=== PATIENT | female | born 1925 | race Caucasian/White ===

== ENCOUNTER 2016-07-30 20:53 | Inpatient (IN) | payer MEDICARE ==
[2016-07-30] MEDS ORDERED: MORPHINE SULFATE 4 MG/ML SYRINGE IVP STA ×2 (21:10→23:27)
[2016-07-30 21:21] LABS: CH 30.5; CHCM 33.1; HCT 37.3 % (34.0-46.0); HDW 2.66; HGB 12.4 gm/dL (11.4-16.0); MCH 30.8 pg (25.0-35.0); MCHC 33.3 g/dL (31.0-37.0); MCV 92.6 fL (80.0-100.0); Mean Platelet Volume 7.7; RBC 4.03 m/uL (3.80-5.40); RDW 12.7 % (11.5-15.5); WBC 19.2 k/uL (3.8-10.6)
[2016-07-30 21:37] LABS: Add Differential Manual Differential
[2016-07-30 21:38] LABS: Magnesium 1.7 mg/dL (1.6-2.3); Potassium 4.2 mmol/L (3.5-5.1); Total Bilirubin 0.6 mg/dL (0.2-1.3); Total Protein 6.6 g/dL (6.3-8.2)
[2016-07-30 21:39] LABS: Nucleated Red Blood Cells 0 /100 WBC (0-0); Polychromasia Present; Total Cells Counted 100
--- NOTE | 2016-07-30 21:44 | XR ---
EXAMINATION TYPE: XR Hip RT and AP Pelvis DATE OF EXAM: 07/30/2016 9:26 PM COMPARISON: NONE HISTORY: Trauma and pain TECHNIQUE: A single AP view of the pelvis is obtained. Two views of the right hip are obtained. FINDINGS: There is intertrochanteric minimally displaced fracture of the proximal right femur. Bone mineralization is reduced. No dislocation. Vascular calcifications within the pelvis. No significant angulation. IMPRESSION: Minimally displaced intertrochanteric right femoral fracture
--- NOTE | 2016-07-30 21:46 | ED ---
Fall HPI - General Chief Complaint: Fall Stated Complaint: Fall/Hip Pain Time Seen by Provider: 07/30/16 21:06 Source: patient, family, EMS, RN notes reviewed Mode of arrival: EMS - History of Present Illness Initial Comments: This is an 89-year-old female who went to sit on a stool in the stool movement she landed on her right hip. She comes in complaining of right hip pain he was brought in by EMS there was apparent and lateral rotation with pain over the proximal femur. No other injuries reported no head neck or back pain no loss of consciousness no blurry vision no nausea no vomiting. MD Complaint: fall - Related Data Home Medications Medication Instructions Recorded Confirmed ALPRAZolam 0.5 mg PO HS PRN 11/10/14 07/30/16 Simvastatin [Zocor] 20 mg PO WEFR 11/10/14 07/30/16 glipiZIDE [Glucotrol] 5 mg PO BID 11/10/14 07/30/16 metFORMIN HCL [Metformin HCl] 850 mg PO BID 11/10/14 07/30/16 Irbesartan [Avapro] 150 mg PO DAILY 12/27/15 07/30/16 Levothyroxine Sodium [Synthroid] 75 mcg PO DAILY 12/27/15 07/30/16 Indapamide [Lozol] 2.5 mg PO DAILY 07/30/16 07/30/16 Allergies Allergy/AdvReac Type Severity Reaction Status Date / Time No Known Allergies Allergy Verified 07/30/16 21:14 Review of Systems ROS Statement: Those systems with pertinent positive or pertinent negative responses have been documented in the HPI. ROS Other: All systems not noted in ROS Statement are negative. Past Medical History Past Medical History: Diabetes Mellitus, Hyperlipidemia, Hypertension, Thyroid Disorder Additional Past Medical History / Comment(s): LACTOSE INTOLERANT. HAD PNE VACCINE NOT SURE HOW MANY YEARS AGO History of Any Multi-Drug Resistant Organisms: None Reported Past Surgical History: Hysterectomy Additional Past Surgical History / Comment(s): cataracts, Past Anesthesia/Blood Transfusion Reactions: Motion Sickness Past Psychological History: Anxiety Additional Psychological History / Comment(s): PT LIVES IN HOME BY HERSELF, HAS WALKER BUT ONLY USES NEEDED.DENIES ANY FALLS. ONLY OUTSIDE SERVICE IS A [employer] 2X A MONTH. for 25 years. 3 adult children. Remote history of tobacco use. No travel history. No work outside of the home. No animal exposures Smoking Status: Former smoker Past Alcohol Use History: None Reported Additional Past Alcohol Use History / Comment(s): STARTED SMOKING IN HER 20'S, 1 PPD, QUIT 30 YEARS AGO Past Drug Use History: None Reported - Past Family History Father History Unknown: Yes Mother History Unknown: Yes General Exam - General Exam Comments Initial Comments: This is a well-developed well-nourished awake alert oriented 3 female Limitations: physical limitation General appearance: alert, anxious, in distress Head exam: Present: atraumatic, normocephalic, normal inspection Eye exam: Present: normal appearance, PERRL, EOMI. Absent: scleral icterus, conjunctival injection, periorbital swelling ENT exam: Present: normal exam, mucous membranes moist Neck exam: Present: normal inspection. Absent: tenderness, meningismus, lymphadenopathy Respiratory exam: Present: normal lung sounds bilaterally. Absent: respiratory distress, wheezes, rales, rhonchi, stridor Cardiovascular Exam: Present: regular rate, normal rhythm, normal heart sounds. Absent: systolic murmur, diastolic murmur, rubs, gallop, clicks GI/Abdominal exam: Present: soft, normal bowel sounds. Absent: distended, tenderness, guarding, rebound, rigid Extremities exam: Present: tenderness, normal capillary refill, other ( Tenderness over the right lateral inferior hip. Shortening and lateral rotation of the right lower extremity consistent with fracture.). Absent: normal inspection, full ROM, pedal edema, joint swelling, calf tenderness Back exam: Present: normal inspection. Absent: tenderness, CVA tenderness (R), CVA tenderness (L), muscle spasm, paraspinal tenderness, vertebral tenderness Neurological exam: Present: alert, oriented X3, CN II-XII intact Psychiatric exam: Present: normal affect, normal mood Skin exam: Present: warm, dry, intact, normal color. Absent: rash Course Vital Signs 07/30/16 07/30/16 20:55 23:24 Temperature 97.8 F Pulse Rate 99 90 Respiratory 20 18 Rate Blood Pressure 155/78 141/63 O2 Sat by Pulse 94 L 97 Oximetry - Reevaluation(s) Reevaluation #1: 07/30/16 21:45 The patient initially was offered pain medication but did refuse. Reevaluation #2: 07/30/16 22:25 I did discuss findings with the patient and family patient has [facility], Dr. Ann. Medical Decision Making - Medical Decision Making Did discuss findings with patient family as well as with the callDr. Damonshakira. The patient will be admitted in medical clearance performed with ultimate surgery of the right hip. - Lab Data Result diagrams: 07/30/16 21:03 07/30/16 21:03 Lab Results 07/30/16 07/30/16 07/30/16 Range/Units 21:03 21:03 21:43 WBC 19.2 H (3.8-10.6) k/uL RBC 4.03 (3.80-5.40) m/uL Hgb 12.4 (11.4-16.0) gm/dL Hct 37.3 (34.0-46.0) % MCV 92.6 (80.0-100.0) fL MCH 30.8 (25.0-35.0) pg MCHC 33.3 (31.0-37.0) g/dL RDW 12.7 (11.5-15.5) % Plt Count 231 (150-450) k/uL Neutrophils % (Manual) 31.0 % Lymphocytes % (Manual) 63.0 % Monocytes % (Manual) 3.0 % Eosinophils % (Manual) 3.0 % Neutrophils # (Manual) 6.0 (1.3-7.7) k/uL Lymphocytes # (Manual) 12.1 H (1.0-4.8) k/uL Monocytes # (Manual) 0.6 (0-1.0) k/uL Eosinophils # (Manual) 0.6 (0-0.7) k/uL Nucleated RBCs 0 (0-0) /100 WBC Polychromasia Present Sodium 135 L (137-145) mmol/L Potassium 4.2 (3.5-5.1) mmol/L Chloride 94 L (98-107) mmol/L Carbon Dioxide 27 (22-30) mmol/L Anion Gap 14 mmol/L BUN 18 H (7-17) mg/dL Creatinine 1.15 H (0.52-1.04) mg/dL Est GFR (MDRD) Af Amer 54 (>60 ml/min/1.73 sqM) Est GFR (MDRD) Non-Af 44 (>60 ml/min/1.73 sqM) Glucose 391 H (74-99) mg/dL Calcium 9.0 (8.4-10.2) mg/dL Magnesium 1.7 (1.6-2.3) mg/dL Total Bilirubin 0.6 (0.2-1.3) mg/dL AST 14 (14-36) U/L ALT 27 (9-52) U/L Alkaline Phosphatase 97 (38-126) U/L Total Protein 6.6 (6.3-8.2) g/dL Albumin 3.8 (3.5-5.0) g/dL Urine Color Yellow Urine Appearance Cloudy H (Clear) Urine pH 6.0 (5.0-8.0) Ur Specific [place] 1.013 (1.001-1.035) Urine Protein Trace H (Negative) Urine Glucose (UA) 4+ H (Negative) Urine Ketones Negative (Negative) Urine Blood Negative (Negative) Urine Nitrate Negative (Negative) Urine Bilirubin Negative (Negative) Urine Urobilinogen <2.0 (<2.0) mg/dL Ur Leukocyte Esterase Large H (Negative) Urine RBC 1 (0-5) /hpf Urine WBC 92 H (0-5) /hpf Urine WBC Clumps Moderate H (None) /hpf Ur Squamous Epith Cells <1 (0-4) /hpf Urine Bacteria Rare H (None) /hpf Urine Mucus Rare H (None) /hpf - EKG Data -: EKG Interpreted by [facility] EKG shows normal: sinus rhythm (Sinus rhythm a rate of 89. Interval 200 QRS duration 72 QT/QTC of 366/445 left exodeviation old inferior and anterior changes no acute elevations or depressions the ST segments.) - Radiology Data Radiology results: report reviewed (X-rays were reviewed there is an intertrochanteric fracture of the right hip), image reviewed Disposition Clinical Impression: Intertrochanteric fracture of right hip, Fall Disposition: ADMITTED IP TO THIS [facility] Condition: Stable
[2016-07-30 21:57] LABS: Appearance,Urine Cloudy (Clear); Bacteria,Urine Rare /hpf; Bilirubin,Urine Negative (Negative); Glucose,Urine (UA) 4+ (Negative); Ketones,Urine Negative (Negative); Leukocyte Esterase,Urine Large (Negative); Mucus,Urine Rare /hpf; Nitrite,Urine Negative (Negative); Particle Count 1348; Protein,Urine Trace (Negative); RBC,Urine 1 /hpf (0-5); Specific Gravity,Urine 1.013 (1.001-1.035); Squamous Epithelial Cell,Urine <1 /hpf (0-4); UA Billing (MACRO vs. MICRO) MICRO; Urobilinogen,Urine <2.0 mg/dL (<2.0); WBC,Urine 92 /hpf (0-5)
--- NOTE | 2016-07-30 22:05 | XR ---
EXAMINATION TYPE: XR chest 1V DATE OF EXAM: 07/30/2016 9:26 PM COMPARISON: Prior chest x-ray December 2015 HISTORY: Trauma and pain TECHNIQUE: Single frontal view of the chest is obtained. FINDINGS: There is no focal air space opacity, pleural effusion, or pneumothorax seen. The cardiac silhouette size is within normal limits. There is eventration of the right hemidiaphragm. There is a spinal curvature. Rotation may cause accentuation in the appearance of the heart. The osseous struc tures are intact. IMPRESSION: Stable exam, no acute abnormalities evident.
[2016-07-30] MEDS ORDERED: NALOXONE 0.4 MG/ML 1 ML VIAL IV PRN (23:30)
[2016-07-30] MEDS ORDERED: ALPRAZolam 0.5 MG TAB PO PRN (23:32)
[2016-07-31 00:22] LABS: Glucose,Whole Blood 300 mg/dL (75-99)
[2016-07-31 01:57] VITALS: BMI 21.2
[2016-07-31] MEDS: SODIUM CHLORIDE 0.9% 1,000 ML IV SCH (05:47)
[2016-07-31] MEDS: MORPHINE SULFATE 4 MG/ML SYRINGE IV PRN ×2 (05:48→14:57)
[2016-07-31] MEDS: LEVOTHYROXINE 75 MCG TAB PO SCH (05:57)
[2016-07-31 07:16] LABS: Glucose,Whole Blood 301 mg/dL (75-99)
[2016-07-31] MEDS: glipiZIDE 5 MG TAB PO SCH ×2 (07:23→17:57)
[2016-07-31] MEDS ORDERED: metFORMIN 850 MG TAB PO SCH (07:30)
[2016-07-31] MEDS: LOSARTAN 50 MG TAB PO SCH (07:56)
[2016-07-31] MEDS: HEPARIN SODIUM,PORCINE 5,000 UNIT/ML 1 ML VIAL SQ SCH ×2 (07:56→20:52)
[2016-07-31] MEDS: INSULIN LISPRO (humaLOG) 300 UNIT/3 ML VIAL SQ SCH ×4 (07:57→20:52)
--- NOTE | 2016-07-31 08:48 | P.HPOR ---
History of Present Illness H&P Date: 07/31/16 Chief Complaint: Right hip fracture This is an 89-year-old female who presented to the emergency department yesterday after falling in her home and sustaining injury to her right hip. She states that she missed her stool and fell to the ground landing on her right hip. She denies injury to her head or neck. She denies any pain to her upper extremities. She denies loss of consciousness. She is admitted to our service for surgical intervention and care of her right hip fracture. Past Medical History Past Medical History: Diabetes Mellitus, Hyperlipidemia, Hypertension, Thyroid Disorder Additional Past Medical History / Comment(s): LACTOSE INTOLERANT. HAD PNE VACCINE NOT SURE HOW MANY YEARS AGO and flu shot this year History of Any Multi-Drug Resistant Organisms: None Reported Past Surgical History: Hysterectomy Additional Past Surgical History / Comment(s): cataracts, Past Anesthesia/Blood Transfusion Reactions: Motion Sickness Past Psychological History: Anxiety Additional Psychological History / Comment(s): PT LIVES IN HOME BY HERSELF, HAS WALKER BUT ONLY USES NEEDED.DENIES ANY FALLS. ONLY OUTSIDE SERVICE IS A [employer] 2X A MONTH. for 25 years. 3 adult children. Remote history of tobacco use. No travel history. No work outside of the home. No animal exposures Smoking Status: Former smoker Past Alcohol Use History: None Reported Additional Past Alcohol Use History / Comment(s): STARTED SMOKING IN HER 20'S, 1 PPD, QUIT 40 YEARS AGO Past Drug Use History: None Reported - Past Family History Father History Unknown: Yes Mother History Unknown: Yes Medications and Allergies Home Medications Medication Instructions Recorded Confirmed Type ALPRAZolam 0.5 mg PO HS PRN 11/10/14 07/30/16 History Simvastatin [Zocor] 20 mg PO WEFR 11/10/14 07/30/16 History glipiZIDE [Glucotrol] 5 mg PO BID 11/10/14 07/30/16 History metFORMIN HCL [Metformin HCl] 850 mg PO BID 11/10/14 07/30/16 History Irbesartan [Avapro] 150 mg PO DAILY 12/27/15 07/30/16 History Levothyroxine Sodium [Synthroid] 75 mcg PO DAILY 12/27/15 07/30/16 History Indapamide [Lozol] 2.5 mg PO DAILY 07/30/16 07/30/16 History Allergies Allergy/AdvReac Type Severity Reaction Status Date / Time No Known Allergies Allergy Verified 07/30/16 21:14 Physical Examination This is a pleasant 89-year-old female in no acute distress. She is alert and oriented 3. Exam of the head neck reveal no obvious deformity. She has fairly good cervical spine motion without difficulty or pain. There is no pain on palpation about cervical spine or paraspinal musculature. Exam the upper extremities unremarkable. She has fairly good shoulder, elbow, wrist and finger motion without difficulty or pain. Neurovascular status the upper extremities intact. Exam of the lower extremities reveals shortening and external rotation to the right leg. There is pain with any motion of the right hip. She has full foot and ankle motion without difficulty or pain. Neurovascular status to the lower extremities is intact. Results X-rays of the pelvis and right hip reveal a displaced intertrochanteric fracture. - Labs Labs: Abnormal Lab Results - Last 24 Hours (Table) 07/31/16 07/31/16 Range/Units 00:21 06:50 POC Glucose (mg/dL) 300 H 301 H (75-99) mg/dL Result Diagrams: 07/30/16 21:03 07/30/16 21:03 Assessment and Plan (1) Intertrochanteric fracture of right hip Status: Acute Plan: The clinical and x-ray findings are discussed with the patient. It is recommended that she undergo closed reduction with insertion of intertrochanteric nail of the right hip. The procedures been discussed in detail including the possible risks and outcomes of the procedure. I have attempted to contact the patient's daughter bilaterally was unable to retrieve by phone. I did leave a message. The patient is requesting Dr. Ann who is out of town at this time. The patient would like me to discuss other options with the daughter. I have her tentatively scheduled with Dr. Conroy for surgery tomorrow. Patient does have an elevated white count and a urinary tract infection. I've ordered antibiotics. We are awaiting evaluation with internal medicine. I anticipate the need for inpatient rehab postoperatively.
[2016-07-31] MEDS ORDERED: INDAPAMIDE 2.5 MG TAB PO SCH (09:00)
[2016-07-31] MEDS ORDERED: LEVOFLOXACIN 500MG-D5W PMX 500 MG in DEXTROSE/WATER 1 100ML.BAG IVPB SCH (09:00)
--- NOTE | 2016-07-31 09:45 | P.CONS ---
History of Present Illness - Reason for Consult Consult date: 07/31/16 Medical management Requesting physician: Erlin Conroy - Chief Complaint Fall with right hip fracture - History of Present Illness This is a 89-year-old female, patient of Dr. Gonzalez. She has a known past medical history of diabetes mellitus type 2, hyperlipidemia, hypertension, hypothyroidism and a former smoker. Patient went to sit on her computer stool. She missed sitting on the stool and landed on the floor on her right hip. The thompson was carpeted. She denies any loss of consciousness or hitting her head. Denies any chest pain or shortness of breath. Denies any nausea or vomiting. She had been having regular bowel movements. Denies any difficulty urinating or burning with urination. She denies any fevers chills or sweats. Patient does little at home alone. She was having significant pain in the right hip area and was brought into the emergency room for further evaluation and treatment. X-ray of the right hip and pelvis shows minimally displaced intertrochanteric right femoral fracture. She was admitted to orthopedic service. We have been consulted for medical management. She is scheduled first orthopedic surgery tomorrow. Review of Systems Please refer to HPI otherwise unremarkable Past Medical History Past Medical History: Diabetes Mellitus, Hyperlipidemia, Hypertension, Thyroid Disorder Additional Past Medical History / Comment(s): LACTOSE INTOLERANT. HAD PNE VACCINE NOT SURE HOW MANY YEARS AGO and flu shot this year History of Any Multi-Drug Resistant Organisms: None Reported Past Surgical History: Hysterectomy Additional Past Surgical History / Comment(s): cataracts, Past Anesthesia/Blood Transfusion Reactions: Motion Sickness Past Psychological History: Anxiety Additional Psychological History / Comment(s): PT LIVES IN HOME BY HERSELF, HAS WALKER BUT ONLY USES NEEDED.DENIES ANY FALLS. ONLY OUTSIDE SERVICE IS A [employer] 2X A MONTH. for 25 years. 3 adult children. Remote history of tobacco use. No travel history. No work outside of the home. No animal exposures Smoking Status: Former smoker Past Alcohol Use History: None Reported Additional Past Alcohol Use History / Comment(s): STARTED SMOKING IN HER 20'S, 1 PPD, QUIT 40 YEARS AGO Past Drug Use History: None Reported - Past Family History Father History Unknown: Yes Mother History Unknown: Yes Medications and Allergies Home Medications Medication Instructions Recorded Confirmed Type ALPRAZolam 0.5 mg PO HS PRN 11/10/14 07/30/16 History Simvastatin [Zocor] 20 mg PO WEFR 11/10/14 07/30/16 History glipiZIDE [Glucotrol] 5 mg PO BID 11/10/14 07/30/16 History metFORMIN HCL [Metformin HCl] 850 mg PO BID 11/10/14 07/30/16 History Irbesartan [Avapro] 150 mg PO DAILY 12/27/15 07/30/16 History Levothyroxine Sodium [Synthroid] 75 mcg PO DAILY 12/27/15 07/30/16 History Indapamide [Lozol] 2.5 mg PO DAILY 07/30/16 07/30/16 History Allergies Allergy/AdvReac Type Severity Reaction Status Date / Time No Known Allergies Allergy Verified 07/30/16 21:14 Physical Exam Vitals: Vital Signs Temp Pulse Pulse Resp BP BP BP 07/31/16 08:00 95 16 07/31/16 07:00 99.4 F 95 16 147/65 07/31/16 03:16 98.3 F 07/31/16 02:00 78 16 07/31/16 01:29 92 16 167/68 07/31/16 00:49 98.3 F 78 18 160/58 07/30/16 23:49 92 18 167/64 Pulse Ox 07/31/16 08:00 07/31/16 07:00 95 07/31/16 03:16 07/31/16 02:00 07/31/16 01:29 97 07/31/16 00:49 95 07/30/16 23:49 97 Intake and Output 07/30/16 07/31/16 07/31/16 22:59 06:59 14:59 Output Total 200 Balance -200 Output: Urine 200 Other: Voiding Method Indwelling Catheter Indwelling Catheter Weight 54.431 kg Head normocephalic Neck supple Lungs diminished at bases bilaterally Heart regular rate and rhythm S1-S2, no rub or gallop Abdomen is soft nontender nondistended positive bowel sounds no hepatosplenomegaly Extremities no edema. +2 dorsalis pedis pulses Neuro alert and orientated to 3 Results CBC & Chem 7: 07/30/16 21:03 07/30/16 21:03 Labs: Abnormal Lab Results - Last 24 Hours (Table) 07/31/16 07/31/16 Range/Units 00:21 06:50 POC Glucose (mg/dL) 300 H 301 H (75-99) mg/dL Assessment and Plan Plan: 1. Acute intertrochanteric right femoral fracture: Admitted to orthopedic service. Patient is scheduled for closed reduction with insertion of intratrochanteric nail of right hip tomorrow. Patient is intermediate risk for surgery using the RCRI . She does have a known known history of diabetes. Denies any history of coronary artery disease, congestive heart failure, CVA or renal failure. She usually is able to walk a flight of stairs without shortness of breath and chest pain. Chest x-ray is negative. EKG had shown a normal sinus rhythm with ST and T-wave abnormality. 2. UTI present on admission: Patient started on Levaquin per orthopedics. Check urine culture. 3. Acute kidney injury creatinine 1.15 on admission. Repeat labs. Start normal saline at 50 mL an hour and monitor. 4. Diabetes mellitus type 2: Hold metformin. Continue glipizide and sliding scale coverage 5. Hypertension: Blood pressures are stable continue with her home blood pressure medications. Which includes the Avapro and Lozol 6. Hypothyroidism continue Synthroid 7. Hyperlipidemia continue Zocor 8. Generalized anxiety disorder continue Xanax as needed GI prophylaxis Pepcid and DVT prophylaxis subcu heparin Thank you for this consultation. We will continue to follow along with you. Time with Patient: Greater than 30 (Greater than 50% of the total time spent in counseling and coordination of care.I performed an examination of the patient and discussed their management with the physician Online Banking Specialist. I have reviewed the Physician Online Banking Specialist's notes and agree with the documented findings and plan of care)
[2016-07-31 09:50] LABS: CH 30.7; CHCM 33.1; HCT 34.4 % (34.0-46.0); HDW 2.61; HGB 11.3 gm/dL (11.4-16.0); MCH 30.8 pg (25.0-35.0); MCV 93.3 fL (80.0-100.0); Mean Platelet Volume 7.6; RBC 3.68 m/uL (3.80-5.40); RDW 12.9 % (11.5-15.5); WBC 23.1 k/uL (3.8-10.6); WBC (Perox) 23.88
[2016-07-31 09:57] LABS: Potassium 4.2 mmol/L (3.5-5.1); Total Bilirubin 0.7 mg/dL (0.2-1.3); Total Protein 6.5 g/dL (6.3-8.2)
[2016-07-31 10:20] LABS: Add Differential Manual Differential
[2016-07-31 10:22] LABS: Manual Review Performed; Nucleated Red Blood Cells 0 /100 WBC (0-0); Total Cells Counted 100
[2016-07-31] MEDS: ONDANSETRON 4 MG/2 ML VIAL IVP PRN ×2 (10:55→17:56)
[2016-07-31 12:12] LABS: Hemoglobin A1C 8.4 % (4.2-6.1)
[2016-07-31 12:42] LABS: Glucose,Whole Blood 257 mg/dL (75-99)
[2016-07-31 17:02] LABS: Glucose,Whole Blood 224 mg/dL (75-99)
[2016-07-31] MEDS: FAMOTIDINE 20 MG TAB PO SCH (17:54)
[2016-07-31 20:41] LABS: Glucose,Whole Blood 188 mg/dL (75-99)
[2016-08-01] MEDS: SODIUM CHLORIDE 0.9% 1,000 ML IV SCH (00:11)
[2016-08-01 02:18] LABS: Glucose,Whole Blood 113 mg/dL (75-99)
[2016-08-01] MEDS: HYDROmorphone 1 MG/ML 1 ML SYRINGE IVP PRN ×3 (02:23→15:37)
[2016-08-01] MEDS: ONDANSETRON 4 MG/2 ML VIAL IVP PRN (02:29)
[2016-08-01] MEDS ORDERED: MIDAZOLAM 2 MG/2 ML VIAL IV PRN (05:52)
[2016-08-01] MEDS: LEVOTHYROXINE 75 MCG TAB PO SCH (06:21)
[2016-08-01 07:29] LABS: Basophils # (A) 0.2 k/uL (0-0.2); Basophils % (A) 1 %; CH 30.6; CHCM 32.7; Eosinophils % (A) 0 %; HCT 30.4 % (34.0-46.0); HDW 2.65; Luc # (Auto) 0.42; Luc % (Auto) 2; Lymphocytes # (A) 7.3 k/uL (1.0-4.8); Lymphocytes % (A) 42 %; MCH 30.6 pg (25.0-35.0); MCHC 32.4 g/dL (31.0-37.0); MCV 94.4 fL (80.0-100.0); Mean Platelet Volume 8.1; Monocytes # (A) 0.7 k/uL (0-1.0); Monocytes % (A) 4 %; Neutrophils # (A) 8.9 k/uL (1.3-7.7); Neutrophils % (A) 51 %; RBC 3.22 m/uL (3.80-5.40); RDW 13.2 % (11.5-15.5); WBC 17.5 k/uL (3.8-10.6); WBC (Perox) 19.18
[2016-08-01 07:30] LABS: HGB 9.8 gm/dL (11.4-16.0)
[2016-08-01 07:32] LABS: Glucose,Whole Blood 139 mg/dL (75-99)
[2016-08-01 07:49] LABS: Calcium 8.9 mg/dL (8.4-10.2); Potassium 4.1 mmol/L (3.5-5.1); Total Bilirubin 0.6 mg/dL (0.2-1.3)
[2016-08-01] MEDS: LEVOFLOXACIN 250MG-D5W PMX 250 MG in DEXTROSE/WATER 1 50ML.BAG IVPB SCH (08:40)
[2016-08-01] MEDS ORDERED: ATORVASTATIN 10 MG TAB PO SCH (09:00)
[2016-08-01] MEDS: glipiZIDE 5 MG TAB PO SCH ×2 (09:09→16:46)
[2016-08-01] MEDS: INSULIN LISPRO (humaLOG) 300 UNIT/3 ML VIAL SQ SCH ×4 (09:09→22:34)
--- NOTE | 2016-08-01 09:23 | P.CONS ---
History of Present Illness - Reason for Consult Consult date: 08/01/16 - Chief Complaint Fall - History of Present Illness Very pleasant 89-year-old female was at her home. She went to work on the computer as she went to sit in the stool she lost her balance and fell to the floor. She then developed significant pain into her right hip. She Was Brought to the Emergency Center for X-Ray Reveals Evidence of the Right Intertrochanteric Hip Fracture Is Minimally Displaced. She is now planned for the open reduction internal fixation of the fracture today. Patient was noted evidence of a mild leukocytosis as well as abnormal urinalysis. Concerns for urinary tract infection. The patient has urinary incontinence and is unaware of any significant change of her urinary status. She is denying dysuria but is unaware of any change of frequency because she has significant incontinence. Does not believe she was having significant fever , chill or rigor in the home setting before she came in the hospital. Family did see her the day of the injury and did not notice any other acute new changes to the patient's status. At the moment other than some pain to the hip she has no other new acute complaints. She is mildly anxious about surgery. Review of Systems Patient is somewhat of a poor historian HEENT:Denies severe headache or acute visual change. Denies sinus or mouth discomforts. Denies neck stiffness or pain. Denies significant oral cavity pain. Denies difficulty on swallowing. He has right ear pain as noted. Lungs: Denies significant shortness of breath, cough, sputum production, or hemoptysis. Cardiovascular: Denies significant shortness of breath, chest pain, chest wall pain, orthopnea, dyspnea on exertion, syncope Gastrointestinal:Denies nausea, vomiting, diarrhea, constipation, hematemesis, melena, hematochezia. No no significant change of bowel habit noticed. Musculoskeletal: denies significant myalgias Denies new back pain. Does have some pain to the right hip but denies that it is severe. Skin: Denies new rash or lesions. No new ulcers or wounds are related.. Neuro: Denies headache or visual change. Poor hearing right ear Psychiatric: Anxious Endocrine: Worsening fatigue and weight loss Past Medical History Past Medical History: Diabetes Mellitus, Hyperlipidemia, Hypertension, Thyroid Disorder Additional Past Medical History / Comment(s): LACTOSE INTOLERANT. HAD PNE VACCINE NOT SURE HOW MANY YEARS AGO and flu shot this year History of Any Multi-Drug Resistant Organisms: None Reported Past Surgical History: Hysterectomy Additional Past Surgical History / Comment(s): cataracts, Past Anesthesia/Blood Transfusion Reactions: Motion Sickness Past Psychological History: Anxiety Additional Psychological History / Comment(s): PT LIVES IN HOME BY HERSELF, HAS WALKER BUT ONLY USES NEEDED. 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 for 25 years. 3 adult children. However involved and see her on a frequent basis. Remote history of tobacco use. No travel history. No work outside of the home. No animal exposures Smoking Status: Former smoker Past Alcohol Use History: None Reported Additional Past Alcohol Use History / Comment(s): STARTED SMOKING IN HER 20'S, 1 PPD, QUIT 40 YEARS AGO Past Drug Use History: None Reported - Past Family History Father History Unknown: Yes Mother History Unknown: Yes Medications and Allergies Home Medications Medication Instructions Recorded Confirmed Type ALPRAZolam 0.5 mg PO HS PRN 11/10/14 07/30/16 History Simvastatin [Zocor] 20 mg PO WEFR 11/10/14 07/30/16 History glipiZIDE [Glucotrol] 5 mg PO BID 11/10/14 07/30/16 History metFORMIN HCL [Metformin HCl] 850 mg PO BID 11/10/14 07/30/16 History Irbesartan [Avapro] 150 mg PO DAILY 12/27/15 07/30/16 History Levothyroxine Sodium [Synthroid] 75 mcg PO DAILY 12/27/15 07/30/16 History Indapamide [Lozol] 2.5 mg PO DAILY 07/30/16 07/30/16 History Allergies Allergy/AdvReac Type Severity Reaction Status Date / Time morphine AdvReac Nausea & Verified 07/31/16 18:01 Vomiting Physical Exam Vitals: Vital Signs Temp Pulse Pulse Resp BP Pulse Ox 08/01/16 07:00 98.7 F 89 16 128/49 96 08/01/16 04:07 99.1 F 79 18 124/53 98 07/31/16 20:33 97.7 F 88 16 119/47 94 L 07/31/16 16:00 98.4 F 95 96 17 115/52 96 Intake and Output 07/31/16 08/01/16 08/01/16 22:59 06:59 14:59 Intake Total 250 400 Output Total 400 300 Balance -150 100 Intake: IV 150 400 Sodium Chloride 0.9% 1, 150 400 000 ml @ 50 mls/hr IV . Q20H [facility] Rx#:[id number] Oral 100 Output: Urine 400 300 Uretheral (Hollis) 300 Other: Voiding Method Indwelling Catheter 89-year-old woman who seems somewhat uncomfortable. Having pain to her right hip. HEENT: Anicteric conjunctiva are pink and moist nasal mucosa grossly intact without significant lesions, there is no thrush. Oral mucosa is dry poor dentition, plates in place Neck: The neck is supple without significant lymphadenopathy or thyromegaly. There is no cervical lymphadenopathy preauricular or posterior cervical at this time. No other abnormal lymph nodes are noted. Lungs: Good bilateral air entry without significant crackles or wheezing. There is no significant bronchial sounds. There is no egophony or dullness. Heart: Irregular with a positive S4. No murmur click or rub. Abdomen: Positive bowel sounds soft and nontender without palpable masses or organomegaly. There was no guarding or rebound. She complained of mild tenderness upon suprapubic pressure. Extremities: The upper extremity show no lesions. IV site is intact. No splinter hemorrhages or lesions on the hands. Left lower extremity has no abnormalities. Fabio has evidence of some mild tenderness to the lateral aspect of the hip. No erythema is noted no extensive bruising is seen. No erythema to the hip areas noted. Neuro: She is awake and alert, somewhat of a poor historian. She follows simple commands. Results CBC & Chem 7: 08/01/16 06:42 08/01/16 06:42 Labs: Abnormal Lab Results - Last 24 Hours (Table) 07/31/16 07/31/16 07/31/16 Range/Units 09:03 09:03 12:16 WBC 23.1 H (3.8-10.6) k/uL RBC 3.68 L (3.80-5.40) m/uL Hgb 11.3 L (11.4-16.0) gm/dL Hct (34.0-46.0) % Neutrophils # (1.3-7.7) k/uL Neutrophils # (Manual) 11.8 H (1.3-7.7) k/uL Lymphocytes # (1.0-4.8) k/uL Lymphocytes # (Manual) 10.6 H (1.0-4.8) k/uL Chloride 97 L (98-107) mmol/L Carbon Dioxide 32 H (22-30) mmol/L BUN (7-17) mg/dL Creatinine 1.09 H (0.52-1.04) mg/dL Glucose 307 H (74-99) mg/dL POC Glucose (mg/dL) 257 H (75-99) mg/dL AST 13 L (14-36) U/L Total Protein (6.3-8.2) g/dL Albumin (3.5-5.0) g/dL 07/31/16 07/31/16 08/01/16 Range/Units 16:53 20:40 02:06 WBC (3.8-10.6) k/uL RBC (3.80-5.40) m/uL Hgb (11.4-16.0) gm/dL Hct (34.0-46.0) % Neutrophils # (1.3-7.7) k/uL Neutrophils # (Manual) (1.3-7.7) k/uL Lymphocytes # (1.0-4.8) k/uL Lymphocytes # (Manual) (1.0-4.8) k/uL Chloride (98-107) mmol/L Carbon Dioxide (22-30) mmol/L BUN (7-17) mg/dL Creatinine (0.52-1.04) mg/dL Glucose (74-99) mg/dL POC Glucose (mg/dL) 224 H 188 H 113 H (75-99) mg/dL AST (14-36) U/L Total Protein (6.3-8.2) g/dL Albumin (3.5-5.0) g/dL 08/01/16 08/01/16 08/01/16 Range/Units 06:42 06:42 07:28 WBC 17.5 H (3.8-10.6) k/uL RBC 3.22 L (3.80-5.40) m/uL Hgb 9.8 L D (11.4-16.0) gm/dL Hct 30.4 L (34.0-46.0) % Neutrophils # 8.9 H (1.3-7.7) k/uL Neutrophils # (Manual) (1.3-7.7) k/uL Lymphocytes # 7.3 H (1.0-4.8) k/uL Lymphocytes # (Manual) (1.0-4.8) k/uL Chloride (98-107) mmol/L Carbon Dioxide 31 H (22-30) mmol/L BUN 21 H (7-17) mg/dL Creatinine 1.28 H (0.52-1.04) mg/dL Glucose 146 H (74-99) mg/dL POC Glucose (mg/dL) 139 H (75-99) mg/dL AST 10 L (14-36) U/L Total Protein 6.0 L (6.3-8.2) g/dL Albumin 3.2 L (3.5-5.0) g/dL Microbiology - Last 24 Hours (Table) 07/31/16 16:50 Urine Culture - Preliminary Urine,Catheterized Laboratory Results WBC 17.5 k/uL (3.8-10.6) H 08/01/16 06:42 RBC 3.22 m/uL (3.80-5.40) L 08/01/16 06:42 Hgb 9.8 gm/dL (11.4-16.0) L D 08/01/16 06:42 Hct 30.4 % (34.0-46.0) L 08/01/16 06:42 MCV 94.4 fL (80.0-100.0) 08/01/16 06:42 MCH 30.6 pg (25.0-35.0) 08/01/16 06:42 MCHC 32.4 g/dL (31.0-37.0) 08/01/16 06:42 RDW 13.2 % (11.5-15.5) 08/01/16 06:42 Plt Count 198 k/uL (150-450) 08/01/16 06:42 Neutrophils % 51 % 08/01/16 06:42 Neutrophils % (Manual) 51.0 % 07/31/16 09:03 Lymphocytes % 42 % 08/01/16 06:42 Lymphocytes % (Manual) 46.0 % 07/31/16 09:03 Monocytes % 4 % 08/01/16 06:42 Monocytes % (Manual) 3.0 % 07/31/16 09:03 Eosinophils % 0 % 08/01/16 06:42 Eosinophils % (Manual) 3.0 % 07/30/16 21:03 Basophils % 1 % 08/01/16 06:42 Neutrophils # 8.9 k/uL (1.3-7.7) H 08/01/16 06:42 Neutrophils # (Manual) 11.8 k/uL (1.3-7.7) H 07/31/16 09:03 Lymphocytes # 7.3 k/uL (1.0-4.8) H 08/01/16 06:42 Lymphocytes # (Manual) 10.6 k/uL (1.0-4.8) H 07/31/16 09:03 Monocytes # 0.7 k/uL (0-1.0) 08/01/16 06:42 Monocytes # (Manual) 0.7 k/uL (0-1.0) 07/31/16 09:03 Eosinophils # 0.0 k/uL (0-0.7) 08/01/16 06:42 Eosinophils # (Manual) 0.6 k/uL (0-0.7) 07/30/16 21:03 Basophils # 0.2 k/uL (0-0.2) 08/01/16 06:42 Nucleated RBCs 0 /100 WBC (0-0) 07/31/16 09:03 Manual Slide Review Performed 07/31/16 09:03 Polychromasia Present 07/30/16 21:03 Poikilocytosis (manual Present 07/31/16 09:03 Sodium 141 mmol/L (137-145) 08/01/16 06:42 Potassium 4.1 mmol/L (3.5-5.1) 08/01/16 06:42 Chloride 101 mmol/L (98-107) 08/01/16 06:42 Carbon Dioxide 31 mmol/L (22-30) H 08/01/16 06:42 Anion Gap 9 mmol/L 08/01/16 06:42 BUN 21 mg/dL (7-17) H 08/01/16 06:42 Creatinine 1.28 mg/dL (0.52-1.04) H 08/01/16 06:42 Est GFR (MDRD) Af Amer 48 (>60 ml/min/1.73 sqM) 08/01/16 06:42 Est GFR (MDRD) Non-Af 39 (>60 ml/min/1.73 sqM) 08/01/16 06:42 Glucose 146 mg/dL (74-99) H 08/01/16 06:42 POC Glucose (mg/dL) 139 mg/dL (75-99) H 08/01/16 07:28 POC Glu Sheet Metal Duct Installer Helper ID Marilin Maza 08/01/16 07:[address] Glu mg/dL 194 mg/dL 07/30/16 21:03 Hemoglobin A1c 8.4 % (4.2-6.1) H 07/30/16 21:03 Calcium 8.9 mg/dL (8.4-10.2) 08/01/16 06:42 Magnesium 1.7 mg/dL (1.6-2.3) 07/30/16 21:03 Total Bilirubin 0.6 mg/dL (0.2-1.3) 08/01/16 06:42 AST 10 U/L (14-36) L 08/01/16 06:42 ALT 26 U/L (9-52) 08/01/16 06:42 Alkaline Phosphatase 75 U/L (38-126) 08/01/16 06:42 Total Protein 6.0 g/dL (6.3-8.2) L 08/01/16 06:42 Albumin 3.2 g/dL (3.5-5.0) L 08/01/16 06:42 Urine Color Yellow 07/30/16 21:43 Urine Appearance Cloudy (Clear) H 07/30/16 21:43 Urine pH 6.0 (5.0-8.0) 07/30/16 21:43 Ur Specific [place] 1.013 (1.001-1.035) 07/30/16 21:43 Urine Protein Trace (Negative) H 07/30/16 21:43 Urine Glucose (UA) 4+ (Negative) H 07/30/16 21:43 Urine Ketones Negative (Negative) 07/30/16 21:43 Urine Blood Negative (Negative) 07/30/16 21:43 Urine Nitrate Negative (Negative) 07/30/16 21:43 Urine Bilirubin Negative (Negative) 07/30/16 21:43 Urine Urobilinogen <2.0 mg/dL (<2.0) 07/30/16 21:43 Ur Leukocyte Esterase Large (Negative) H 07/30/16 21:43 Urine RBC 1 /hpf (0-5) 07/30/16 21:43 Urine WBC 92 /hpf (0-5) H 07/30/16 21:43 Urine WBC Clumps Moderate /hpf (None) H 07/30/16 21:43 Ur Squamous Epith Cells <1 /hpf (0-4) 07/30/16 21:43 Urine Bacteria Rare /hpf (None) H 07/30/16 21:43 Urine Mucus Rare /hpf (None) H 07/30/16 21:43 Microbiology 07/31/16 16:50 Urine,Catheterized Urine Culture - Preliminary Assessment and Plan (1) Intertrochanteric fracture of right hip Narrative/Plan: 89-year-old female presents to Hospital from home. She attempted to sit on the stool she uses for her computer and missed the stool. She relates that the stool is normally for her sewing machine and is kind of short and may not been the right position. She fell to the floor causing severe pain to her right hip. Now is evidence of the intratrochanteric fracture of her right hip. Going to the operating room today. The patient does have urinary incontinence and is unaware frequency but does have evidence of some mild suprapubic tenderness on the exam. There is also evidence of a markedly abnormal urinalysis and she does have some leukocytosis. Stenosis is likely multifactorial including the significant fracture as well as what appears to be urinary infection. Antibiotic therapy has been initiated with levofloxacin. This is likely an adequate choice given her lack of significant other primary in about therapy for urinary infections. She does have urine culture in process and this will further help direct antibiotic therapy. She may proceed to open reduction internal fixation for hip fracture today. Consult received at 8:15 AM. Status: Acute (2) Leukocytosis Status: Acute (3) Urinary tract infection Status: Acute
[2016-08-01] MEDS ORDERED: IV FLUID CONTINUATION 1,000 ML IV ONE (09:27)
[2016-08-01] MEDS: FAMOTIDINE 20 MG TAB PO SCH (09:52)
[2016-08-01] MEDS: HEPARIN SODIUM,PORCINE 5,000 UNIT/ML 1 ML VIAL SQ SCH ×2 (09:52→22:33)
[2016-08-01] MEDS: LOSARTAN 50 MG TAB PO SCH (09:52)
[2016-08-01] MEDS: LACTATED RINGERS 1,000 ML IV SCH ×2 (10:35→13:53)
[2016-08-01] MEDS ORDERED: KETAMINE 10 MG/ML 20 ML VIAL ONE (10:40)
[2016-08-01] MEDS ORDERED: fentaNYL (PF) 50 MCG/ML 2 ML AMP ONE (10:40)
[2016-08-01] MEDS ORDERED: diphenhydrAMINE 50 MG/ML 1 ML VIAL ONE (10:40)
[2016-08-01] MEDS ORDERED: PROPOFOL 10 MG/ML 20 ML VIAL IV ONE (10:40)
[2016-08-01] MEDS ORDERED: MIDAZOLAM 2 MG/2 ML VIAL ONE (10:40)
[2016-08-01] MEDS ORDERED: ceFAZolin 1,000 MG in SODIUM CHLORIDE 0.9% 1,000 ML IRRIGATION ONE (10:44)
--- NOTE | 2016-08-01 10:52 | P.PN ---
Subjective Is a 89-year-old female who presented to the hospital after fracturing her right hip. She had gone to sit on her stool and missed the stool. Also was found have evidence of a UTI. Seen by Dr. Sarmiento and he has cleared her for surgery. Patient lying in bed comfortably. Pain controlled. Denies any chest pain or shortness of breath. Denies any nausea or vomiting. Denies any bowel movement changes. Denies any burning with urination. Patient was seen evaluated prior to surgery Objective - Vital Signs Vital signs: Vital Signs Temp 97.9 F 08/01/16 09:29 Pulse 83 08/01/16 09:29 Resp 18 08/01/16 09:29 BP 130/71 08/01/16 09:29 Pulse Ox 91 L 08/01/16 09:29 Intake & Output 07/31/16 08/01/16 08/01/16 18:59 06:59 18:59 Intake Total 268 913 9081 Output Total 400 300 Balance 241 289 6923 Intake: IV 186 463 0779 Sodium Chloride 0.9% 1, 500 550 000 ml @ 50 mls/hr IV . Q20H [facility] Rx#:[id number] Intake, IV Titration 150 Amount Levofloxacin 250Mg-D5w 50 Pmx 250 mg In Dextrose/ Water 1 50ml.bag @ 50 mls /hr IVPB Q24H [facility] Rx#: [id number] Levofloxacin 500Mg-D5w 100 Pmx 500 mg In Dextrose/ Water 1 100ml.bag @ 100 mls/hr IVPB Q24H [facility] Rx#: [id number] Oral 100 Output: Urine 400 300 Uretheral (Hollis) 300 Other: Voiding Method Indwelling Catheter Indwelling Catheter Indwelling Catheter - Exam Head normocephalic Neck supple Lungs clear to auscultation bilaterally no wheezing or crackles Heart regular rate and rhythm S1-S2, no rub or gallop Abdomen is soft nontender nondistended positive bowel sounds no hepatosplenomegaly Extremities no edema Neuro alert and orientated to 3 - Labs CBC & Chem 7: 08/01/16 06:42 08/01/16 06:42 Labs: Abnormal Lab Results - Last 24 Hours (Table) 07/31/16 07/31/16 07/31/16 Range/Units 12:16 16:53 20:40 WBC (3.8-10.6) k/uL RBC (3.80-5.40) m/uL Hgb (11.4-16.0) gm/dL Hct (34.0-46.0) % Neutrophils # (1.3-7.7) k/uL Lymphocytes # (1.0-4.8) k/uL Carbon Dioxide (22-30) mmol/L BUN (7-17) mg/dL Creatinine (0.52-1.04) mg/dL Glucose (74-99) mg/dL POC Glucose (mg/dL) 257 H 224 H 188 H (75-99) mg/dL AST (14-36) U/L Total Protein (6.3-8.2) g/dL Albumin (3.5-5.0) g/dL 08/01/16 08/01/16 08/01/16 Range/Units 02:06 06:42 06:42 WBC 17.5 H (3.8-10.6) k/uL RBC 3.22 L (3.80-5.40) m/uL Hgb 9.8 L D (11.4-16.0) gm/dL Hct 30.4 L (34.0-46.0) % Neutrophils # 8.9 H (1.3-7.7) k/uL Lymphocytes # 7.3 H (1.0-4.8) k/uL Carbon Dioxide 31 H (22-30) mmol/L BUN 21 H (7-17) mg/dL Creatinine 1.28 H (0.52-1.04) mg/dL Glucose 146 H (74-99) mg/dL POC Glucose (mg/dL) 113 H (75-99) mg/dL AST 10 L (14-36) U/L Total Protein 6.0 L (6.3-8.2) g/dL Albumin 3.2 L (3.5-5.0) g/dL 08/01/16 Range/Units 07:28 WBC (3.8-10.6) k/uL RBC (3.80-5.40) m/uL Hgb (11.4-16.0) gm/dL Hct (34.0-46.0) % Neutrophils # (1.3-7.7) k/uL Lymphocytes # (1.0-4.8) k/uL Carbon Dioxide (22-30) mmol/L BUN (7-17) mg/dL Creatinine (0.52-1.04) mg/dL Glucose (74-99) mg/dL POC Glucose (mg/dL) 139 H (75-99) mg/dL AST (14-36) U/L Total Protein (6.3-8.2) g/dL Albumin (3.5-5.0) g/dL Microbiology - Last 24 Hours (Table) 07/31/16 16:50 Urine Culture - Preliminary Urine,Catheterized Assessment and Plan Plan: 1. Acute intertrochanteric right femoral fracture: Admitted to orthopedic service. Patient is scheduled for closed reduction with insertion of intratrochanteric nail of right hip tomorrow. Patient is intermediate risk for surgery using the RCRI . She does have a known known history of diabetes. Denies any history of coronary artery disease, congestive heart failure, CVA or renal failure. She usually is able to walk a flight of stairs without shortness of breath and chest pain. Chest x-ray is negative. EKG had shown a normal sinus rhythm with ST and T-wave abnormality. Patient was also cleared by infectious disease to proceed with surgery. Patient is medically stable to proceed with surgery. 2. UTI present on admission: Continue Levaquin. Await urine culture. Evaluated by infectious disease. 3. Acute kidney injury creatinine 1.15 on admission. Repeat labs. Start normal saline at 50 mL an hour and monitor. Creatinine is up to 1.28. Continue with fluid hydration. Excellent fluids to be increased after surgery. Also her diuretic was placed on hold yesterday 4. Diabetes mellitus type 2: Hold metformin. Continue glipizide and sliding scale coverage 5. Hypertension: Blood pressures are stable continue with her home blood pressure medications. Which includes the Avapro and Lozol 6. Hypothyroidism continue Synthroid 7. Hyperlipidemia continue Zocor 8. Generalized anxiety disorder continue Xanax as needed 9. Leukocytosis: White count is trending down likely related to the UTI. 10. Hypoxemia likely related to atelectasis will continue with incentive's from a tree. Fraction level has shown improvement today. 11. Anemia possibly acute blood loss anemia due to the fracture. We'll monitor. Also check iron studies. GI prophylaxis Pepcid and DVT prophylaxis subcu heparin
[2016-08-01] MEDS ORDERED: ceFAZolin 2 GM in SODIUM CHLORIDE 0.9% 100 ML IVPB STA (10:53)
[2016-08-01] MEDS ORDERED: SODIUM CHLORIDE 0.9% 50 ML with ceFAZolin 2,000 MG IV ONE ×2 (11:00)
[2016-08-01 11:47] LABS: % Iron Saturation 24.4 % (20-50)
--- NOTE | 2016-08-01 11:49 | XR ---
EXAMINATION TYPE: XR Hip Complete RT, [place] guidance operating room DATE OF EXAM: 08/01/2016 11:45 AM COMPARISON: NONE HISTORY: IT RIGHT HIP Dr. Das; [place] time 22 seconds; two scanned films; IT right hip
[2016-08-01] MEDS ORDERED: hydrOXYzine PAMOATE 25 MG CAP PO PRN (12:03)
[2016-08-01] MEDS ORDERED: MAGNESIUM HYDROXIDE 2,400 MG/10 ML CUP PO PRN (12:03)
[2016-08-01] MEDS ORDERED: HYDROcodone/APAP 5-325MG 1 EACH TAB PO PRN (12:03)
[2016-08-01] MEDS ORDERED: HYDROmorphone 1 MG/ML 1 ML SYRINGE IVP PRN ×3 (12:03)
[2016-08-01] MEDS ORDERED: NALOXONE 0.4 MG/ML 1 ML VIAL IV PRN (12:03)
[2016-08-01 13:08] LABS: Glucose,Whole Blood 163 mg/dL (75-99)
[2016-08-01 13:52] LABS: Basophils # (A) 0.1 k/uL (0-0.2); Basophils % (A) 0 %; CH 30.5; Eosinophils % (A) 0 %; HCT 29.5 % (34.0-46.0); HDW 2.62; HGB 9.6 gm/dL (11.4-16.0); Luc # (Auto) 0.65; Luc % (Auto) 3; Lymphocytes % (A) 39 %; MCH 31.1 pg (25.0-35.0); MCHC 32.6 g/dL (31.0-37.0); MCV 95.7 fL (80.0-100.0); Mean Platelet Volume 7.3; Monocytes # (A) 0.7 k/uL (0-1.0); Monocytes % (A) 4 %; Neutrophils # (A) 11.2 k/uL (1.3-7.7); Neutrophils % (A) 54 %; RBC 3.08 m/uL (3.80-5.40); RDW 12.8 % (11.5-15.5); WBC 20.7 k/uL (3.8-10.6); WBC (Perox) 21.05
[2016-08-01] MEDS: ceFAZolin 2 GM in SODIUM CHLORIDE 0.9% 100 ML IVPB SCH (16:46)
[2016-08-01 16:54] LABS: Glucose,Whole Blood 169 mg/dL (75-99)
[2016-08-01] MEDS ORDERED: TEMAZEPAM 15 MG CAP PO PRN (21:00)
[2016-08-01 21:05] LABS: Glucose,Whole Blood 191 mg/dL (75-99)
[2016-08-01] MEDS: SENNOSIDES-DOCUSATE SODIUM 1 EACH TAB PO SCH (22:33)
[2016-08-01] MEDS: HYDROcodone/APAP 5-325MG 1 EACH TAB PO PRN (22:33)
[2016-08-02] MEDS: SODIUM CHLORIDE 0.9% 1,000 ML IV SCH ×2 (00:34→17:57)
[2016-08-02] MEDS: ceFAZolin 2 GM in SODIUM CHLORIDE 0.9% 100 ML IVPB SCH (01:39)
[2016-08-02] MEDS: LACTATED RINGERS 1,000 ML IV SCH ×4 (03:10→22:03)
[2016-08-02] MEDS: HYDROmorphone 1 MG/ML 1 ML SYRINGE IVP PRN (03:17)
[2016-08-02 03:41] LABS: Glucose,Whole Blood 103 mg/dL (75-99)
[2016-08-02] MEDS: LEVOTHYROXINE 75 MCG TAB PO SCH (06:14)
[2016-08-02 07:04] LABS: Basophils # (A) 0.1 k/uL (0-0.2); Basophils % (A) 1 %; CHCM 33.3; Eosinophils # (A) 0.1 k/uL (0-0.7); Eosinophils % (A) 0 %; HCT 26.6 % (34.0-46.0); HDW 2.71; HGB 8.7 gm/dL (11.4-16.0); Luc # (Auto) 0.34; Luc % (Auto) 2; Lymphocytes % (A) 44 %; MCH 30.5 pg (25.0-35.0); MCHC 32.6 g/dL (31.0-37.0); MCV 93.7 fL (80.0-100.0); Mean Platelet Volume 8.5; Monocytes # (A) 0.9 k/uL (0-1.0); Monocytes % (A) 5 %; Neutrophils # (A) 7.7 k/uL (1.3-7.7); Neutrophils % (A) 48 %; RBC 2.84 m/uL (3.80-5.40); RDW 13.2 % (11.5-15.5); WBC (Perox) 17.52
[2016-08-02 07:11] LABS: Glucose,Whole Blood 94 mg/dL (75-99)
[2016-08-02] MEDS: INSULIN LISPRO (humaLOG) 300 UNIT/3 ML VIAL SQ SCH ×4 (07:19→21:02)
[2016-08-02 07:59] LABS: Calcium 8.5 mg/dL (8.4-10.2); Potassium 3.2 mmol/L (3.5-5.1); Total Bilirubin 0.6 mg/dL (0.2-1.3); Total Protein 5.3 g/dL (6.3-8.2)
[2016-08-02] MEDS: HEPARIN SODIUM,PORCINE 5,000 UNIT/ML 1 ML VIAL SQ SCH ×2 (08:25→20:54)
[2016-08-02] MEDS: MULTIVITAMINS, THERA 1 EACH TAB PO SCH (08:25)
[2016-08-02] MEDS: glipiZIDE 5 MG TAB PO SCH ×2 (08:25→16:10)
[2016-08-02] MEDS: FAMOTIDINE 20 MG TAB PO SCH (08:25)
[2016-08-02] MEDS: LEVOFLOXACIN 250MG-D5W PMX 250 MG in DEXTROSE/WATER 1 50ML.BAG IVPB SCH (08:25)
[2016-08-02] MEDS: LOSARTAN 50 MG TAB PO SCH (08:25)
[2016-08-02] MEDS: HYDROcodone/APAP 5-325MG 1 EACH TAB PO PRN ×2 (08:28→14:46)
--- NOTE | 2016-08-02 10:42 | P.PN ---
Progress Note - Text Patient is a very pleasant 89-year-old female who is seen and examined at bedside for follow-up evaluation after undergoing right intramedullary gamma nail fixation for her right intertrochanteric hip fracture performed by Dr. Conroy yesterday, 08/01/2016. Postsurgically patient states her pain has been controlled and her right hip. She has been eating with voiding without difficulty but states she hasn't had much of an appetite. Her nurse states she has been running a low-grade temperature and medicine will plan to see her for further evaluation. Previously her weight blood cell count was 20.7 and has reduced down to 16. She is currently receiving Levaquin for a urinary tract infection. Patient currently has no new complaints and states she is doing okay postsurgically. We are currently planning for discharge to rehabilitation facility is coming 08/04/2016. Physical Exam Intramedullary Rodding for Intertrochanteric Fracture: Status post surgical day number 1 Patient is examined sitting upright in a bedside chair Patient is awake and alert, and oriented 3 Vital signs stable Good chest excursion with deep inspiration and expiration; patient currently on O2 nasal cannula Abdomen soft nontender No signs or symptoms of DVT; no calf pain Lower extremity cuffs in place bilaterally Dressing of the right hip is clean, dry, and intact; no erythema, purulence, or signs of infection; Dermabond remains intact over the surgical sites Full range of motion of ankles bilaterally Dorsiflexion, plantarflexion, and extensor hallucis longus positive sustained bilaterally Neurovascularly intact bilateral lower extremities Capillary refill less than 2 seconds bilateral lower extremities Assessment: Status post right intramedullary gamma nail fixation for right intertrochanteric hip fracture Plan: 1. Patient to remain toe-touch only on the left lower extremity; patient may work with physical therapy to increase mobility and ambulation 2. Continue pain control 3. Medicine to continue following the patient for his other medical issues; medicine to determine if should discontinue heparin 4. Continue with anticoagulation therapy with Coumadin per orthopedic sliding scale with daily PT/INR lab draws 5. We'll continue to follow the patient 6. Patient will more than likely remain in the hospital over the weekend with plans to discharge to rehab this 08/04/2016 7. Patient can follow-up with Dr. Conroy at [facility] in 2 weeks following discharge
[2016-08-02] MEDS ORDERED: WARFARIN 2.5 MG TAB PO ONE (11:00)
[2016-08-02 11:44] LABS: Glucose,Whole Blood 169 mg/dL (75-99)
--- NOTE | 2016-08-02 13:03 | P.PN ---
Subjective 89-year-old female being seen on rounds. Patient is postop 01 of August a right ORIF involving the right hip after patient sustained a fall resulting in a fracture involving the hip. Currently patient is sitting up taking a diet. Denies any dizziness lightheadedness chest pain or shortness of. Patients being followed by orthopedic service. The discharge plan is in progress. Tentatively scheduled for discharge on the 04 of August to the rehab center. Patients being treated for a UTI infectious disease has the patient on Levaquin. It was noted at one in the morning the patient's temp was 101. Currently temp is 99. Objective - Vital Signs Vital signs: Vital Signs Temp 99.0 F 08/02/16 07:00 Pulse 84 08/02/16 07:00 Resp 16 08/02/16 07:00 BP 137/60 08/02/16 07:00 Pulse Ox 96 08/02/16 07:00 Intake & Output 08/01/16 08/02/16 08/02/16 18:59 06:59 18:59 Intake Total 2290 1200 100 Output Total 315 760 Balance 1975 440 100 Intake: IV 1950 1200 Lactated Ringers 1,000 ml 1200 @ 100 mls/hr IV .Q10H AUDREY Rx#:[id number] Sodium Chloride 0.9% 1, 200 000 ml @ 50 mls/hr IV . Q20H AUDREY Rx#:[id number] Intake, IV Titration 100 Amount ceFAZolin 2 gm In Sodium 100 Chloride 0.9% 100 ml @ 100 mls/hr IVPB Q8HR AUDREY Rx#:[id number] Oral 240 100 Output: Urine 265 760 Uretheral (Hollis) 760 Estimated Blood Loss 50 Other: Voiding Method Indwelling Catheter Indwelling Catheter Indwelling Catheter - Exam Physical exam 89-year-old female sitting up in bed daughter at bedside pleasant oriented 3 Lungs essentially clear adequate air movement Heart S1-S2 audible regular Abdomen soft indwelling Hollis catheter in place no reports of nausea no frequent stooling Extremities dressing to the right hip dry no edema no calf tenderness - Labs CBC & Chem 7: 08/02/16 06:45 08/02/16 06:45 Labs: Abnormal Lab Results - Last 24 Hours (Table) 08/01/16 08/01/16 08/01/16 Range/Units 13:06 13:29 16:50 WBC 20.7 H (3.8-10.6) k/uL RBC 3.08 L (3.80-5.40) m/uL Hgb 9.6 L (11.4-16.0) gm/dL Hct 29.5 L (34.0-46.0) % Neutrophils # 11.2 H (1.3-7.7) k/uL Lymphocytes # 8.0 H (1.0-4.8) k/uL Potassium (3.5-5.1) mmol/L Carbon Dioxide (22-30) mmol/L Creatinine (0.52-1.04) mg/dL POC Glucose (mg/dL) 163 H 169 H (75-99) mg/dL AST (14-36) U/L Total Protein (6.3-8.2) g/dL Albumin (3.5-5.0) g/dL 08/01/16 08/02/16 08/02/16 Range/Units 20:59 03:26 06:45 WBC 16.0 H (3.8-10.6) k/uL RBC 2.84 L (3.80-5.40) m/uL Hgb 8.7 L (11.4-16.0) gm/dL Hct 26.6 L (34.0-46.0) % Neutrophils # (1.3-7.7) k/uL Lymphocytes # 7.0 H (1.0-4.8) k/uL Potassium (3.5-5.1) mmol/L Carbon Dioxide (22-30) mmol/L Creatinine (0.52-1.04) mg/dL POC Glucose (mg/dL) 191 H 103 H (75-99) mg/dL AST (14-36) U/L Total Protein (6.3-8.2) g/dL Albumin (3.5-5.0) g/dL 08/02/16 08/02/16 Range/Units 06:45 11:38 WBC (3.8-10.6) k/uL RBC (3.80-5.40) m/uL Hgb (11.4-16.0) gm/dL Hct (34.0-46.0) % Neutrophils # (1.3-7.7) k/uL Lymphocytes # (1.0-4.8) k/uL Potassium 3.2 L (3.5-5.1) mmol/L Carbon Dioxide 31 H (22-30) mmol/L Creatinine 1.05 H (0.52-1.04) mg/dL POC Glucose (mg/dL) 169 H (75-99) mg/dL AST 10 L (14-36) U/L Total Protein 5.3 L (6.3-8.2) g/dL Albumin 2.8 L (3.5-5.0) g/dL Microbiology - Last 24 Hours (Table) 07/31/16 16:50 Urine Culture - Final Urine,Catheterized Assessment and Plan Plan: Impression Status post fall resulting in right hip pain due to a right hip fracture Status post right intramedullary gamma nail fixation for right intertrochanteric hip fracture done 08/01/2015 Present on admission UTI Type 2 diabetes non-insulin Hypertension essential stable Hypothyroid Dyslipidemia Generalized anxiety disorder nonspecified Leukocytosis suspect due to the UTI Anemia possible acute blood loss due to right hip fracture Postop febrile Acute kidney injury creatinine 1.1 Hypoxemia likely related to atelectasis Plan Continue postop care per orthopedic service PT OT per orthopedics recommendations Encourage the use of an incentive spirometer use every 1 hour while awake DVT and GI prophylaxis Continue recommendations by infectious disease currently on IV Levaquin Encourage oral intake Repeat labs follow up on results Discharge plan and progress defer to the timing per orthopedics recommendations Further recommendations pending will follow Pain control The above dictated assessment and findings were discussed with dr maldonado. Impression and the plan of care have been dictated as directed. Chloe Palacios nurse practitioner acting as a scribe for dr maldonado
[2016-08-02] MEDS ORDERED: Potassium Replacement Protocol 1 EACH MISC MISCELLANE PRN ×2 (13:14→14:12)
[2016-08-02] MEDS ORDERED: POTASSIUM CHLORIDE 10 MEQ in WATER FOR INJECTION 1 100ML.BAG IVPB ONE (13:14)
[2016-08-02] MEDS: POTASSIUM CHLORIDE ER 20 MEQ TAB.ER PO SCH ×2 (14:45→16:09)
[2016-08-02 17:00] LABS: Glucose,Whole Blood 188 mg/dL (75-99)
[2016-08-02] MEDS ORDERED: POTASSIUM CHLORIDE ER 20 MEQ TAB.ER PO ONE ×2 (19:00→23:52)
[2016-08-02] MEDS: SENNOSIDES-DOCUSATE SODIUM 1 EACH TAB PO SCH (20:54)
[2016-08-02 21:02] LABS: Glucose,Whole Blood 222 mg/dL (75-99)
--- NOTE | 2016-08-02 23:24 | P.PN ---
Subjective Principal diagnosis: hip fracture Very pleasant 89-year-old female was at her home. She went to work on the computer as she went to sit in the stool she lost her balance and fell to the floor. She then developed significant pain into her right hip. She Was Brought to the Emergency Center for X-Ray Reveals Evidence of the Right Intertrochanteric Hip Fracture Is Minimally Displaced. She is now planned for the open reduction internal fixation of the fracture today. Patient was noted evidence of a mild leukocytosis as well as abnormal urinalysis. Concerns for urinary tract infection. The patient has urinary incontinence and is unaware of any significant change of her urinary status. She is denying dysuria but is unaware of any change of frequency because she has significant incontinence. Does not believe she was having significant fever , chill or rigor in the home setting before she came in the hospital. Family did see her the day of the injury and did not notice any other acute new changes to the patient's status. At the moment other than some pain to the hip she has no other new acute complaints, did well with surgery. Objective - Vital Signs Vital signs: Vital Signs Temp 98.5 F 08/02/16 19:00 Pulse 98 08/02/16 19:00 Resp 16 08/02/16 20:00 BP 109/52 08/02/16 19:00 Pulse Ox 98 08/02/16 19:00 Intake & Output 08/02/16 08/02/16 08/03/16 06:59 18:59 06:59 Intake Total 1200 1000 100 Output Total 760 500 Balance 440 500 100 Intake: IV 1200 800 Lactated Ringers 1,000 ml 1200 800 @ 100 mls/hr IV .Q10H AUDREY Rx#:[id number] Oral 200 100 Output: Urine 760 500 Uretheral (Hollis) 760 500 Other: Voiding Method Indwelling Catheter Indwelling Catheter Bedpan Diaper # Voids 1 - Exam 89-year-old woman who seems somewhat uncomfortable. Having pain to her right hip. HEENT: Anicteric conjunctiva are pink and moist nasal mucosa grossly intact without significant lesions, there is no thrush. Oral mucosa is dry poor dentition, plates in place Neck: The neck is supple without significant lymphadenopathy or thyromegaly. There is no cervical lymphadenopathy preauricular or posterior cervical at this time. No other abnormal lymph nodes are noted. Lungs: Good bilateral air entry without significant crackles or wheezing. There is no significant bronchial sounds. There is no egophony or dullness. Heart: Irregular with a positive S4. No murmur click or rub. Abdomen: Positive bowel sounds soft and nontender without palpable masses or organomegaly. There was no guarding or rebound. She complained of mild tenderness upon suprapubic pressure. Extremities: The upper extremity show no lesions. IV site is intact. No splinter hemorrhages or lesions on the hands. Left lower extremity has no abnormalities. the right hip has evidence ofevidence of some mild tenderness to the lateral aspect of the hip. No erythema is noted, no extensive bruising is seen. No erythema to the hip areas noted. Neuro: She is awake and alert, somewhat of a poor historian. She follows simple commands. - Labs CBC & Chem 7: 08/02/16 06:45 08/02/16 22:49 Labs: Abnormal Lab Results - Last 24 Hours (Table) 08/02/16 08/02/16 08/02/16 Range/Units 03:26 06:45 06:45 WBC 16.0 H (3.8-10.6) k/uL RBC 2.84 L (3.80-5.40) m/uL Hgb 8.7 L (11.4-16.0) gm/dL Hct 26.6 L (34.0-46.0) % Lymphocytes # 7.0 H (1.0-4.8) k/uL Potassium 3.2 L (3.5-5.1) mmol/L Carbon Dioxide 31 H (22-30) mmol/L Creatinine 1.05 H (0.52-1.04) mg/dL POC Glucose (mg/dL) 103 H (75-99) mg/dL AST 10 L (14-36) U/L Total Protein 5.3 L (6.3-8.2) g/dL Albumin 2.8 L (3.5-5.0) g/dL 08/02/16 08/02/16 08/02/16 Range/Units 11:38 16:38 20:42 WBC (3.8-10.6) k/uL RBC (3.80-5.40) m/uL Hgb (11.4-16.0) gm/dL Hct (34.0-46.0) % Lymphocytes # (1.0-4.8) k/uL Potassium (3.5-5.1) mmol/L Carbon Dioxide (22-30) mmol/L Creatinine (0.52-1.04) mg/dL POC Glucose (mg/dL) 169 H 188 H 222 H (75-99) mg/dL AST (14-36) U/L Total Protein (6.3-8.2) g/dL Albumin (3.5-5.0) g/dL Microbiology - Last 24 Hours (Table) 07/31/16 16:50 Urine Culture - Final Urine,Catheterized Laboratory Results WBC 16.0 k/uL (3.8-10.6) H 08/02/16 06:45 RBC 2.84 m/uL (3.80-5.40) L 08/02/16 06:45 Hgb 8.7 gm/dL (11.4-16.0) L 08/02/16 06:45 Hct 26.6 % (34.0-46.0) L 08/02/16 06:45 MCV 93.7 fL (80.0-100.0) 08/02/16 06:45 MCH 30.5 pg (25.0-35.0) 08/02/16 06:45 MCHC 32.6 g/dL (31.0-37.0) 08/02/16 06:45 RDW 13.2 % (11.5-15.5) 08/02/16 06:45 Plt Count 182 k/uL (150-450) 08/02/16 06:45 Neutrophils % 48 % 08/02/16 06:45 Neutrophils % (Manual) 51.0 % 07/31/16 09:03 Lymphocytes % 44 % 08/02/16 06:45 Lymphocytes % (Manual) 46.0 % 07/31/16 09:03 Monocytes % 5 % 08/02/16 06:45 Monocytes % (Manual) 3.0 % 07/31/16 09:03 Eosinophils % 0 % 08/02/16 06:45 Eosinophils % (Manual) 3.0 % 07/30/16 21:03 Basophils % 1 % 08/02/16 06:45 Neutrophils # 7.7 k/uL (1.3-7.7) 08/02/16 06:45 Neutrophils # (Manual) 11.8 k/uL (1.3-7.7) H 07/31/16 09:03 Lymphocytes # 7.0 k/uL (1.0-4.8) H 08/02/16 06:45 Lymphocytes # (Manual) 10.6 k/uL (1.0-4.8) H 07/31/16 09:03 Monocytes # 0.9 k/uL (0-1.0) 08/02/16 06:45 Monocytes # (Manual) 0.7 k/uL (0-1.0) 07/31/16 09:03 Eosinophils # 0.1 k/uL (0-0.7) 08/02/16 06:45 Eosinophils # (Manual) 0.6 k/uL (0-0.7) 07/30/16 21:03 Basophils # 0.1 k/uL (0-0.2) 08/02/16 06:45 Nucleated RBCs 0 /100 WBC (0-0) 07/31/16 09:03 Manual Slide Review Performed 07/31/16 09:03 Polychromasia Present 07/30/16 21:03 Poikilocytosis (manual Present 07/31/16 09:03 Sodium 138 mmol/L (137-145) 08/02/16 06:45 Potassium 3.8 mmol/L (3.5-5.1) 08/02/16 22:49 Chloride 98 mmol/L (98-107) 08/02/16 06:45 Carbon Dioxide 31 mmol/L (22-30) H 08/02/16 06:45 Anion Gap 9 mmol/L 08/02/16 06:45 BUN 15 mg/dL (7-17) 08/02/16 06:45 Creatinine 1.05 mg/dL (0.52-1.04) H 08/02/16 06:45 Est GFR (MDRD) Af Amer 60 (>60 ml/min/1.73 sqM) 08/02/16 06:45 Est GFR (MDRD) Non-Af 49 (>60 ml/min/1.73 sqM) 08/02/16 06:45 Glucose 97 mg/dL (74-99) 08/02/16 06:45 POC Glucose (mg/dL) 222 mg/dL (75-99) H 08/02/16 20:42 POC Glu [employer] Washer ID Yaneth Richards 08/02/16 20:[address] Glu mg/dL 194 mg/dL 07/30/16 21:03 Hemoglobin A1c 8.4 % (4.2-6.1) H 07/30/16 21:03 Calcium 8.5 mg/dL (8.4-10.2) 08/02/16 06:45 Magnesium 1.7 mg/dL (1.6-2.3) 07/30/16 21:03 Iron 66 ug/dL (37-170) 08/01/16 06:42 TIBC 271 ug/dL (265-497) 08/01/16 06:42 % Saturation 24.4 % (20-50) 08/01/16 06:42 Ferritin 38 ng/mL (11-264) 08/01/16 06:42 Total Bilirubin 0.6 mg/dL (0.2-1.3) 08/02/16 06:45 AST 10 U/L (14-36) L 08/02/16 06:45 ALT 29 U/L (9-52) 08/02/16 06:45 Alkaline Phosphatase 62 U/L (38-126) 08/02/16 06:45 Total Protein 5.3 g/dL (6.3-8.2) L 08/02/16 06:45 Albumin 2.8 g/dL (3.5-5.0) L 08/02/16 06:45 Urine Color Yellow 07/30/16 21:43 Urine Appearance Cloudy (Clear) H 07/30/16 21:43 Urine pH 6.0 (5.0-8.0) 07/30/16 21:43 Ur Specific Petroleum 1.013 (1.001-1.035) 07/30/16 21:43 Urine Protein Trace (Negative) H 07/30/16 21:43 Urine Glucose (UA) 4+ (Negative) H 07/30/16 21:43 Urine Ketones Negative (Negative) 07/30/16 21:43 Urine Blood Negative (Negative) 07/30/16 21:43 Urine Nitrate Negative (Negative) 07/30/16 21:43 Urine Bilirubin Negative (Negative) 07/30/16 21:43 Urine Urobilinogen <2.0 mg/dL (<2.0) 07/30/16 21:43 Ur Leukocyte Esterase Large (Negative) H 07/30/16 21:43 Urine RBC 1 /hpf (0-5) 07/30/16 21:43 Urine WBC 92 /hpf (0-5) H 07/30/16 21:43 Urine WBC Clumps Moderate /hpf (None) H 07/30/16 21:43 Ur Squamous Epith Cells <1 /hpf (0-4) 07/30/16 21:43 Urine Bacteria Rare /hpf (None) H 07/30/16 21:43 Urine Mucus Rare /hpf (None) H 07/30/16 21:43 Blood Type O Positive 08/01/16 10:05 Blood Type Recheck No 08/01/16 10:05 Antibody Screen NEGATIVE 08/01/16 10:05 Spec Expiration Date 08/04/2016 - 230408/01/16 10:05 Microbiology 07/31/16 16:50 Urine,Catheterized Urine Culture - Final Assessment and Plan (1) Intertrochanteric fracture of right hip Narrative/Plan: 89-year-old female presents to Hospital from home. She attempted to sit on the stool she uses for her computer and missed the stool. She relates that the stool is normally for her sewing machine and is kind of short and may not been the right position. She fell to the floor causing severe pain to her right hip. Now is evidence of the intratrochanteric fracture of her right hip. Going to the operating room today. The patient does have urinary incontinence and is unaware frequency but does have evidence of some mild suprapubic tenderness on the exam. There is also evidence of a markedly abnormal urinalysis and she does have some leukocytosis. Stenosis is likely multifactorial including the significant fracture as well as what appears to be urinary infection. Antibiotic therapy has been initiated with levofloxacin. This is likely an adequate choice given her lack of significant other primary in about therapy for urinary infections. She does have urine culture in process and this will further help direct antibiotic therapy. urine culture so far. She did well with surgery and will be monitored likely will just have a short course of antibiotic therapy Status: Acute (2) Leukocytosis Status: Acute (3) Urinary tract infection Status: Acute
[2016-08-03] MEDS: HYDROcodone/APAP 5-325MG 1 EACH TAB PO PRN ×2 (01:49→20:12)
[2016-08-03 02:02] LABS: Glucose,Whole Blood 156 mg/dL (75-99)
[2016-08-03 03:24] LABS: Basophils # (A) 0.1 k/uL (0-0.2); Basophils % (A) 1 %; CH 30.7; CHCM 33.3; Eosinophils # (A) 0.1 k/uL (0-0.7); Eosinophils % (A) 0 %; HCT 24.7 % (34.0-46.0); HDW 2.74; HGB 8.1 gm/dL (11.4-16.0); Luc # (Auto) 0.32; Luc % (Auto) 2; Lymphocytes # (A) 7.3 k/uL (1.0-4.8); Lymphocytes % (A) 43 %; MCH 30.4 pg (25.0-35.0); MCHC 32.7 g/dL (31.0-37.0); MCV 92.8 fL (80.0-100.0); Mean Platelet Volume 8.1; Monocytes % (A) 6 %; Neutrophils # (A) 8.2 k/uL (1.3-7.7); Neutrophils % (A) 49 %; RBC 2.67 m/uL (3.80-5.40); RDW 13.2 % (11.5-15.5); WBC 16.9 k/uL (3.8-10.6); WBC (Perox) 16.79
[2016-08-03 03:33] LABS: INR 1.1 (<1.1); Prothrombin Time 11.5 sec (9.0-12.0)
[2016-08-03 03:50] LABS: ALT 24 U/L (9-52); AST 16 U/L (14-36); Alkaline Phosphatase 60 U/L (38-126); Anion Gap 8 mmol/L; Blood Urea Nitrogen 18 mg/dL (7-17); Calcium 8.4 mg/dL (8.4-10.2); Carbon Dioxide 31 mmol/L (22-30); Chloride 98 mmol/L (98-107); Glucose 134 mg/dL (74-99); Non-African American GFR(MDRD) 52 (>60 ml/min/1.73 sqM); Sodium 137 mmol/L (137-145); Total Bilirubin 0.6 mg/dL (0.2-1.3); Total Protein 4.9 g/dL (6.3-8.2)
[2016-08-03] MEDS: LEVOTHYROXINE 75 MCG TAB PO SCH (05:42)
[2016-08-03] MEDS: LACTATED RINGERS 1,000 ML IV SCH ×2 (05:43→05:58)
[2016-08-03 06:38] LABS: Glucose,Whole Blood 103 mg/dL (75-99)
[2016-08-03] MEDS: INSULIN LISPRO (humaLOG) 300 UNIT/3 ML VIAL SQ SCH ×4 (07:35→20:08)
[2016-08-03] MEDS: glipiZIDE 5 MG TAB PO SCH ×2 (07:35→17:31)
[2016-08-03] MEDS: FAMOTIDINE 20 MG TAB PO SCH (08:49)
[2016-08-03] MEDS: HEPARIN SODIUM,PORCINE 5,000 UNIT/ML 1 ML VIAL SQ SCH ×2 (08:49→20:08)
[2016-08-03] MEDS: LEVOFLOXACIN 250MG-D5W PMX 250 MG in DEXTROSE/WATER 1 50ML.BAG IVPB SCH ×2 (08:49→14:01)
[2016-08-03] MEDS: LOSARTAN 50 MG TAB PO SCH (08:50)
--- NOTE | 2016-08-03 09:29 | P.PN ---
Subjective 89-year-old female being seen on rounds this morning is currently sitting up in a chair talkative appears in no acute distress taking fluids tolerating diet nursing reports patient has poor IV access the current IV has infiltrated. Patients being followed by infectious disease as well as orthopedic service. Recommendations reviewed noted and appreciated. The discharge plan is in progress. Possible transfer to [facility] subacute rehab within the next 24 hours. is postop from an open reduction internal fixation of the right hip after patient sustained a fall resulting in a right hip fracture. Objective - Vital Signs Vital signs: Vital Signs Temp 98.8 F 08/03/16 02:00 Pulse 90 08/03/16 02:00 Resp 16 08/03/16 04:00 BP 126/59 08/03/16 02:00 Pulse Ox 97 08/03/16 02:00 Intake & Output 08/02/16 08/03/16 08/03/16 18:59 06:59 18:59 Intake Total 1000 200 Output Total 500 Balance 500 200 Intake: IV 800 Lactated Ringers 1,000 ml 800 @ 100 mls/hr IV .Q10H AUDREY Rx#:[id number] Oral 200 200 Output: Urine 500 Uretheral (Hollis) 500 Other: Voiding Method Indwelling Catheter Bedpan Bedpan Diaper Diaper # Voids 1 - Exam Physical exam 89-year-old female sitting up in a chair slightly hard of hearing pleasant cooperative oriented 3 Lungs essentially clear adequate air movement on room air sats are 98% no cough noted Heart S1-S2 audible regular no murmur denying chest pain Abdomen soft nontender voiding no difficulty no stool no reports of nausea no vomiting Extremities dressing to the right hip dry no Tenderness no edema - Labs CBC & Chem 7: 08/03/16 03:13 08/03/16 03:13 Labs: Abnormal Lab Results - Last 24 Hours (Table) 08/02/16 08/02/16 08/02/16 Range/Units 11:38 16:38 20:42 WBC (3.8-10.6) k/uL RBC (3.80-5.40) m/uL Hgb (11.4-16.0) gm/dL Hct (34.0-46.0) % Neutrophils # (1.3-7.7) k/uL Lymphocytes # (1.0-4.8) k/uL Carbon Dioxide (22-30) mmol/L BUN (7-17) mg/dL Glucose (74-99) mg/dL POC Glucose (mg/dL) 169 H 188 H 222 H (75-99) mg/dL Total Protein (6.3-8.2) g/dL Albumin (3.5-5.0) g/dL 08/03/16 08/03/16 08/03/16 Range/Units 01:52 03:13 03:13 WBC 16.9 H (3.8-10.6) k/uL RBC 2.67 L (3.80-5.40) m/uL Hgb 8.1 L (11.4-16.0) gm/dL Hct 24.7 L (34.0-46.0) % Neutrophils # 8.2 H (1.3-7.7) k/uL Lymphocytes # 7.3 H (1.0-4.8) k/uL Carbon Dioxide 31 H (22-30) mmol/L BUN 18 H (7-17) mg/dL Glucose 134 H (74-99) mg/dL POC Glucose (mg/dL) 156 H (75-99) mg/dL Total Protein 4.9 L (6.3-8.2) g/dL Albumin 2.6 L (3.5-5.0) g/dL 08/03/16 Range/Units 06:36 WBC (3.8-10.6) k/uL RBC (3.80-5.40) m/uL Hgb (11.4-16.0) gm/dL Hct (34.0-46.0) % Neutrophils # (1.3-7.7) k/uL Lymphocytes # (1.0-4.8) k/uL Carbon Dioxide (22-30) mmol/L BUN (7-17) mg/dL Glucose (74-99) mg/dL POC Glucose (mg/dL) 103 H (75-99) mg/dL Total Protein (6.3-8.2) g/dL Albumin (3.5-5.0) g/dL Assessment and Plan Plan: Impression Status post fall resulting in right hip pain due to a right hip fracture Status post right intramedullary gamma nail fixation for right intertrochanteric hip fracture done 08/01/2015 Present on admission UTI Type 2 diabetes non-insulin Hypertension essential stable Hypothyroid Dyslipidemia Generalized anxiety disorder nonspecified Leukocytosis suspect due to the UTI current urine culture shows no growth Anemia possible acute blood loss due to right hip fracture Postop febrile Acute kidney injury creatinine 1.1 Hypoxemia likely related to atelectasis Mild protein calorie malnutrition suspect chronic due to poor caloric intake Plan Continue postop care per orthopedic service PT OT per orthopedics recommendations Encourage the use of an incentive spirometer use every 1 hour while awake DVT and GI prophylaxis Continue recommendations by infectious disease currently on IV Levaquin Encourage oral intake Repeat labs follow up on results Discharge plan and progress defer to the timing per orthopedics recommendations Repeat labs in the morning Pain control The above dictated assessment and findings were discussed with dr maldonado. Impression and the plan of care have been dictated as directed. Chloe Palacios nurse practitioner acting as a scribe for dr maldonado
[2016-08-03] MEDS ORDERED: LEVOFLOXACIN 250 MG TAB PO SCH (09:30)
--- NOTE | 2016-08-03 09:46 | P.PN ---
Progress Note - Text Patient is a very pleasant 89-year-old female who is seen and examined at bedside for follow-up evaluation after undergoing right intramedullary gamma nail fixation for her right intertrochanteric hip fracture performed by Dr. Conroy 08/01/2016. Since being seen and examined yesterday, her symptoms have not significantly changed. Postsurgically patient states her pain has been controlled and her right hip. She has been eating with voiding without difficulty but states she hasn't had much of an appetite. She has not had any increased temperatures or low-grade fevers since being seen and examined yesterday. Her white blood cell count is currently 16.9. She is currently receiving Levaquin for a urinary tract infection. She denies any nausea, vomiting, fever, or chills. Patient currently has no new complaints and states she is doing okay postsurgically. We are currently planning for discharge to rehabilitation facility is coming 08/04/2016. Physical Exam Intramedullary Rodding for Intertrochanteric Fracture: Status post surgical day number 2 Patient is examined sitting upright in a bedside chair Patient is awake and alert, and oriented 3 Vital signs stable Good chest excursion with deep inspiration and expiration; patient currently on O2 nasal cannula Abdomen soft nontender No signs or symptoms of DVT; no calf pain Lower extremity cuffs in place bilaterally Dressing of the right hip is clean, dry, and intact; no erythema, purulence, or signs of infection; Dermabond remains intact over the surgical sites Full range of motion of ankles bilaterally Dorsiflexion, plantarflexion, and extensor hallucis longus positive sustained bilaterally Neurovascularly intact bilateral lower extremities Capillary refill less than 2 seconds bilateral lower extremities Assessment: Status post right intramedullary gamma nail fixation for right intertrochanteric hip fracture Urinary tract infection Plan: 1. Patient to remain toe-touch only on the left lower extremity; patient may work with physical therapy to increase mobility and ambulation 2. Continue pain control 3. Dr. Sarmiento in infectious disease to continue following patient for her urinary tract infection; continue with Levaquin 4. Medicine to continue following the patient for his other medical issues; medicine to determine if should discontinue heparin 5. Continue with anticoagulation therapy with Coumadin per orthopedic sliding scale with daily PT/INR lab draws 6. We'll continue to follow the patient 7. Patient will more than likely remain in the hospital over the weekend with plans to discharge to rehab this 08/04/2016 8. Patient can follow-up with Dr. Conroy at [facility] in 2 weeks following discharge
[2016-08-03] MEDS: SODIUM CHLORIDE 0.9% 1,000 ML IV SCH (09:54)
[2016-08-03 11:06] LABS: Glucose,Whole Blood 160 mg/dL (75-99)
[2016-08-03] MEDS: MULTIVITAMINS, THERA 1 EACH TAB PO SCH (11:45)
[2016-08-03 12:51] LABS: CH 30.7; CHCM 32.7; HCT 24.7 % (34.0-46.0); HDW 2.66; HGB 7.9 gm/dL (11.4-16.0); MCH 30.2 pg (25.0-35.0); MCV 94.3 fL (80.0-100.0); Mean Platelet Volume 7.6; RBC 2.62 m/uL (3.80-5.40); WBC 18.8 k/uL (3.8-10.6); WBC (Perox) 18.76
[2016-08-03 13:12] LABS: Add Differential Manual Differential
[2016-08-03 13:13] LABS: Nucleated Red Blood Cells 0 /100 WBC (0-0); Total Cells Counted 100
[2016-08-03 13:14] LABS: Polychromasia Present
--- NOTE | 2016-08-03 15:30 | P.PN ---
Subjective Principal diagnosis: hip fracture Very pleasant 89-year-old female was at her home. She went to work on the computer as she went to sit in the stool she lost her balance and fell to the floor. She then developed significant pain into her right hip. She Was Brought to the Emergency Center for X-Ray Reveals Evidence of the Right Intertrochanteric Hip Fracture Is Minimally Displaced. She is now planned for the open reduction internal fixation of the fracture today. Patient was noted evidence of a mild leukocytosis as well as abnormal urinalysis. Concerns for urinary tract infection. The patient has urinary incontinence and is unaware of any significant change of her urinary status. She is denying dysuria but is unaware of any change of frequency because she has significant incontinence. Does not believe she was having significant fever , chill or rigor in the home setting before she came in the hospital. Family did see her the day of the injury and did not notice any other acute new changes to the patient's status. At the moment other than some pain to the hip she has no other new acute complaints, did well with surgery. Objective - Vital Signs Vital signs: Vital Signs Temp 97.6 F 08/03/16 13:54 Pulse 88 08/03/16 13:54 Resp 16 08/03/16 13:54 BP 106/50 08/03/16 13:54 Pulse Ox 98 08/03/16 13:54 Intake & Output 08/02/16 08/03/16 08/03/16 18:59 06:59 18:59 Intake Total 2276 738 6351 Output Total 500 Balance 988 883 5477 Intake: IV 800 Lactated Ringers 1,000 ml 800 @ 100 mls/hr IV .Q10H AUDREY Rx#:[id number] Oral 040 119 3033 Output: Urine 500 Uretheral (Hollis) 500 Other: Voiding Method Indwelling Catheter Bedpan Bedpan Diaper Diaper # Voids 1 1 - Exam 89-year-old woman who seems somewhat uncomfortable. Having pain to her right hip. HEENT: Anicteric conjunctiva are pink and moist nasal mucosa grossly intact without significant lesions, there is no thrush. Oral mucosa is dry poor dentition, plates in place Neck: The neck is supple without significant lymphadenopathy or thyromegaly. There is no cervical lymphadenopathy preauricular or posterior cervical at this time. No other abnormal lymph nodes are noted. Lungs: Good bilateral air entry without significant crackles or wheezing. There is no significant bronchial sounds. There is no egophony or dullness. Heart: Irregular with a positive S4. No murmur click or rub. Abdomen: Positive bowel sounds soft and nontender without palpable masses or organomegaly. There was no guarding or rebound. She complained of mild tenderness upon suprapubic pressure. Extremities: The upper extremity show no lesions. IV site is intact. No splinter hemorrhages or lesions on the hands. Left lower extremity has no abnormalities. the right hip has evidence ofevidence of some mild tenderness to the lateral aspect of the hip. No erythema is noted, no extensive bruising is seen. No erythema to the hip areas noted. Neuro: She is awake and alert, somewhat of a poor historian. She follows simple commands. - Labs CBC & Chem 7: 08/03/16 12:16 08/03/16 03:13 Labs: Abnormal Lab Results - Last 24 Hours (Table) 08/02/16 08/02/16 08/03/16 Range/Units 16:38 20:42 01:52 WBC (3.8-10.6) k/uL RBC (3.80-5.40) m/uL Hgb (11.4-16.0) gm/dL Hct (34.0-46.0) % Neutrophils # (1.3-7.7) k/uL Neutrophils # (Manual) (1.3-7.7) k/uL Lymphocytes # (1.0-4.8) k/uL Lymphocytes # (Manual) (1.0-4.8) k/uL Carbon Dioxide (22-30) mmol/L BUN (7-17) mg/dL Glucose (74-99) mg/dL POC Glucose (mg/dL) 188 H 222 H 156 H (75-99) mg/dL Total Protein (6.3-8.2) g/dL Albumin (3.5-5.0) g/dL 08/03/16 08/03/16 08/03/16 Range/Units 03:13 03:13 06:36 WBC 16.9 H (3.8-10.6) k/uL RBC 2.67 L (3.80-5.40) m/uL Hgb 8.1 L (11.4-16.0) gm/dL Hct 24.7 L (34.0-46.0) % Neutrophils # 8.2 H (1.3-7.7) k/uL Neutrophils # (Manual) (1.3-7.7) k/uL Lymphocytes # 7.3 H (1.0-4.8) k/uL Lymphocytes # (Manual) (1.0-4.8) k/uL Carbon Dioxide 31 H (22-30) mmol/L BUN 18 H (7-17) mg/dL Glucose 134 H (74-99) mg/dL POC Glucose (mg/dL) 103 H (75-99) mg/dL Total Protein 4.9 L (6.3-8.2) g/dL Albumin 2.6 L (3.5-5.0) g/dL 08/03/16 08/03/16 Range/Units 11:02 12:16 WBC 18.8 H (3.8-10.6) k/uL RBC 2.62 L (3.80-5.40) m/uL Hgb 7.9 L (11.4-16.0) gm/dL Hct 24.7 L (34.0-46.0) % Neutrophils # (1.3-7.7) k/uL Neutrophils # (Manual) 10.9 H (1.3-7.7) k/uL Lymphocytes # (1.0-4.8) k/uL Lymphocytes # (Manual) 7.5 H (1.0-4.8) k/uL Carbon Dioxide (22-30) mmol/L BUN (7-17) mg/dL Glucose (74-99) mg/dL POC Glucose (mg/dL) 160 H (75-99) mg/dL Total Protein (6.3-8.2) g/dL Albumin (3.5-5.0) g/dL Laboratory Results WBC 18.8 k/uL (3.8-10.6) H 08/03/16 12:16 RBC 2.62 m/uL (3.80-5.40) L 08/03/16 12:16 Hgb 7.9 gm/dL (11.4-16.0) L 08/03/16 12:16 Hct 24.7 % (34.0-46.0) L 08/03/16 12:16 MCV 94.3 fL (80.0-100.0) 08/03/16 12:16 MCH 30.2 pg (25.0-35.0) 08/03/16 12:16 MCHC 32.0 g/dL (31.0-37.0) 08/03/16 12:16 RDW 13.0 % (11.5-15.5) 08/03/16 12:16 Plt Count 203 k/uL (150-450) 08/03/16 12:16 Neutrophils % 49 % 08/03/16 03:13 Neutrophils % (Manual) 58.0 % 08/03/16 12:16 Lymphocytes % 43 % 08/03/16 03:13 Lymphocytes % (Manual) 40.0 % 08/03/16 12:16 Monocytes % 6 % 08/03/16 03:13 Monocytes % (Manual) 2.0 % 08/03/16 12:16 Eosinophils % 0 % 08/03/16 03:13 Eosinophils % (Manual) 3.0 % 07/30/16 21:03 Basophils % 1 % 08/03/16 03:13 Neutrophils # 8.2 k/uL (1.3-7.7) H 08/03/16 03:13 Neutrophils # (Manual) 10.9 k/uL (1.3-7.7) H 08/03/16 12:16 Lymphocytes # 7.3 k/uL (1.0-4.8) H 08/03/16 03:13 Lymphocytes # (Manual) 7.5 k/uL (1.0-4.8) H 08/03/16 12:16 Monocytes # 1.0 k/uL (0-1.0) 08/03/16 03:13 Monocytes # (Manual) 0.4 k/uL (0-1.0) 08/03/16 12:16 Eosinophils # 0.1 k/uL (0-0.7) 08/03/16 03:13 Eosinophils # (Manual) 0.6 k/uL (0-0.7) 07/30/16 21:03 Basophils # 0.1 k/uL (0-0.2) 08/03/16 03:13 Nucleated RBCs 0 /100 WBC (0-0) 08/03/16 12:16 Manual Slide Review Performed 07/31/16 09:03 Polychromasia Present 08/03/16 12:16 Poikilocytosis (manual Present 07/31/16 09:03 PT 11.5 sec (9.0-12.0) 08/03/16 03:13 INR 1.1 (<1.1) 08/03/16 03:13 Sodium 137 mmol/L (137-145) 08/03/16 03:13 Potassium 4.0 mmol/L (3.5-5.1) 08/03/16 03:13 Chloride 98 mmol/L (98-107) 08/03/16 03:13 Carbon Dioxide 31 mmol/L (22-30) H 08/03/16 03:13 Anion Gap 8 mmol/L 08/03/16 03:13 BUN 18 mg/dL (7-17) H 08/03/16 03:13 Creatinine 1.00 mg/dL (0.52-1.04) 08/03/16 03:13 Est GFR (MDRD) Af Amer >60 (>60 ml/min/1.73 sqM) 08/03/16 03:13 Est GFR (MDRD) Non-Af 52 (>60 ml/min/1.73 sqM) 08/03/16 03:13 Glucose 134 mg/dL (74-99) H 08/03/16 03:13 POC Glucose (mg/dL) 160 mg/dL (75-99) H 08/03/16 11:02 POC Glu Clinical Auditor ID 08/03/16 11:[address] Glu mg/dL 194 mg/dL 07/30/16 21:03 Hemoglobin A1c 8.4 % (4.2-6.1) H 07/30/16 21:03 Calcium 8.4 mg/dL (8.4-10.2) 08/03/16 03:13 Magnesium 1.7 mg/dL (1.6-2.3) 07/30/16 21:03 Iron 66 ug/dL (37-170) 08/01/16 06:42 TIBC 271 ug/dL (265-497) 08/01/16 06:42 % Saturation 24.4 % (20-50) 08/01/16 06:42 Ferritin 38 ng/mL (11-264) 08/01/16 06:42 Total Bilirubin 0.6 mg/dL (0.2-1.3) 08/03/16 03:13 AST 16 U/L (14-36) 08/03/16 03:13 ALT 24 U/L (9-52) 08/03/16 03:13 Alkaline Phosphatase 60 U/L (38-126) 08/03/16 03:13 Total Protein 4.9 g/dL (6.3-8.2) L 08/03/16 03:13 Albumin 2.6 g/dL (3.5-5.0) L 08/03/16 03:13 Urine Color Yellow 07/30/16 21:43 Urine Appearance Cloudy (Clear) H 07/30/16 21:43 Urine pH 6.0 (5.0-8.0) 07/30/16 21:43 Ur Specific [place] 1.013 (1.001-1.035) 07/30/16 21:43 Urine Protein Trace (Negative) H 07/30/16 21:43 Urine Glucose (UA) 4+ (Negative) H 07/30/16 21:43 Urine Ketones Negative (Negative) 07/30/16 21:43 Urine Blood Negative (Negative) 07/30/16 21:43 Urine Nitrate Negative (Negative) 07/30/16 21:43 Urine Bilirubin Negative (Negative) 07/30/16 21:43 Urine Urobilinogen <2.0 mg/dL (<2.0) 07/30/16 21:43 Ur Leukocyte Esterase Large (Negative) H 07/30/16 21:43 Urine RBC 1 /hpf (0-5) 07/30/16 21:43 Urine WBC 92 /hpf (0-5) H 07/30/16 21:43 Urine WBC Clumps Moderate /hpf (None) H 07/30/16 21:43 Ur Squamous Epith Cells <1 /hpf (0-4) 07/30/16 21:43 Urine Bacteria Rare /hpf (None) H 07/30/16 21:43 Urine Mucus Rare /hpf (None) H 07/30/16 21:43 Blood Type O Positive 08/01/16 10:05 Blood Type Recheck No 08/01/16 10:05 Antibody Screen NEGATIVE 08/01/16 10:05 Spec Expiration Date 08/04/2016 - 230408/01/16 10:05 Microbiology 07/31/16 16:50 Urine,Catheterized Urine Culture - Final Assessment and Plan (1) Intertrochanteric fracture of right hip Narrative/Plan: 89-year-old female presents to Hospital from home. She attempted to sit on the stool she uses for her computer and missed the stool. She relates that the stool is normally for her sewing machine and is kind of short and may not been the right position. She fell to the floor causing severe pain to her right hip. Now is evidence of the intratrochanteric fracture of her right hip. Going to the operating room today. The patient does have urinary incontinence and is unaware frequency but does have evidence of some mild suprapubic tenderness on the exam. There is also evidence of a markedly abnormal urinalysis and she does have some leukocytosis. Stenosis is likely multifactorial including the significant fracture as well as what appears to be urinary infection. Antibiotic therapy has been initiated with levofloxacin. This is likely an adequate choice given her lack of significant other primary in about therapy for urinary infections. She does have urine culture in process and this will further help direct antibiotic therapy. urine culture so far. She did well with surgery and will be monitored urine cultures negative and antibiotic therapy is discontinued. Status: Acute (2) Leukocytosis Status: Acute (3) Urinary tract infection Status: Acute
[2016-08-03 17:07] LABS: Glucose,Whole Blood 139 mg/dL (75-99)
[2016-08-03] MEDS ORDERED: WARFARIN 5 MG TAB PO ONE (18:00)
[2016-08-03] MEDS: SENNOSIDES-DOCUSATE SODIUM 1 EACH TAB PO SCH (20:08)
[2016-08-03 20:16] LABS: Glucose,Whole Blood 194 mg/dL (75-99)
[2016-08-04 01:36] LABS: Glucose,Whole Blood 62 mg/dL (75-99)
[2016-08-04] MEDS: SODIUM CHLORIDE 0.9% 1,000 ML IV SCH ×2 (04:02→20:04)
[2016-08-04] MEDS: LEVOTHYROXINE 75 MCG TAB PO SCH (05:29)
[2016-08-04] MEDS: LACTATED RINGERS 1,000 ML IV SCH ×2 (05:54→20:09)
[2016-08-04 06:44] LABS: Glucose,Whole Blood 58 mg/dL (75-99)
[2016-08-04 06:53] LABS: Basophils # (A) 0.1 k/uL (0-0.2); Basophils % (A) 1 %; CH 30.5; CHCM 33.1; Eosinophils # (A) 0.1 k/uL (0-0.7); Eosinophils % (A) 1 %; HCT 23.7 % (34.0-46.0); HDW 2.77; HGB 7.8 gm/dL (11.4-16.0); Luc # (Auto) 0.27; Luc % (Auto) 2; Lymphocytes # (A) 6.9 k/uL (1.0-4.8); Lymphocytes % (A) 48 %; MCH 30.6 pg (25.0-35.0); MCV 92.9 fL (80.0-100.0); Mean Platelet Volume 8.4; Monocytes # (A) 0.8 k/uL (0-1.0); Monocytes % (A) 5 %; Neutrophils # (A) 6.4 k/uL (1.3-7.7); Neutrophils % (A) 44 %; RBC 2.55 m/uL (3.80-5.40); RDW 13.1 % (11.5-15.5); WBC 14.5 k/uL (3.8-10.6); WBC (Perox) 15.02
[2016-08-04 06:58] LABS: Glucose,Whole Blood 61 mg/dL (75-99)
[2016-08-04 07:00] LABS: INR 1.3 (<1.1); Prothrombin Time 12.9 sec (9.0-12.0)
[2016-08-04 07:07] LABS: ALT 24 U/L (9-52); AST 15 U/L (14-36); Alkaline Phosphatase 62 U/L (38-126); Anion Gap 9 mmol/L; Blood Urea Nitrogen 17 mg/dL (7-17); Calcium 8.4 mg/dL (8.4-10.2); Carbon Dioxide 33 mmol/L (22-30); Chloride 96 mmol/L (98-107); Glucose 61 mg/dL (74-99); Non-African American GFR(MDRD) 55 (>60 ml/min/1.73 sqM); Potassium 3.6 mmol/L (3.5-5.1); Sodium 138 mmol/L (137-145); Total Bilirubin 0.6 mg/dL (0.2-1.3); Total Protein 5.2 g/dL (6.3-8.2)
[2016-08-04 07:18] LABS: Glucose,Whole Blood 90 mg/dL (75-99)
[2016-08-04 07:43] LABS: Manual Review Performed
[2016-08-04] MEDS: INSULIN LISPRO (humaLOG) 300 UNIT/3 ML VIAL SQ SCH ×4 (07:43→20:00)
[2016-08-04] MEDS: FAMOTIDINE 20 MG TAB PO SCH (07:50)
[2016-08-04] MEDS: LOSARTAN 50 MG TAB PO SCH (07:50)
[2016-08-04] MEDS: HEPARIN SODIUM,PORCINE 5,000 UNIT/ML 1 ML VIAL SQ SCH ×2 (07:50→20:00)
[2016-08-04] MEDS: MULTIVITAMINS, THERA 1 EACH TAB PO SCH (07:50)
--- NOTE | 2016-08-04 08:25 | P.PN ---
Subjective Principal diagnosis: Right hip fracture This is an 89-year-old female with history of fall sustaining injury to her right hip. She underwent closed reduction and insertion of intertrochanteric nail of the right hip on 08/01/2015. She is doing fairly well from an orthopedic standpoint. Her hemoglobin is 7.8 today. Objective - Vital Signs Vital signs: Vital Signs Temp 98.1 F 08/04/16 07:19 Pulse 73 08/04/16 07:19 Resp 17 08/04/16 07:19 BP 137/61 08/04/16 07:19 Pulse Ox 98 08/04/16 07:19 Intake & Output 08/03/16 08/04/16 08/04/16 18:59 06:59 18:59 Intake Total 1700 300 Balance 1700 300 Intake: Oral 1700 300 Other: Voiding Method Diaper Diaper # Voids 1 - Exam This is a pleasant 89-year-old female in no acute distress. She is alert and oriented 3. Family is present at bedside. Exam of the right hip reveals that there is no erythema or ecchymosis. There is no drainage from the incisions. Dermabond glue is intact. She has full foot ankle motion without difficulty or pain. Neurovascular status to the lower extremity is intact. - Labs CBC & Chem 7: 08/04/16 06:22 08/04/16 06:22 Labs: Abnormal Lab Results - Last 24 Hours (Table) 08/03/16 08/03/16 08/03/16 Range/Units 11:02 12:16 17:02 WBC 18.8 H (3.8-10.6) k/uL RBC 2.62 L (3.80-5.40) m/uL Hgb 7.9 L (11.4-16.0) gm/dL Hct 24.7 L (34.0-46.0) % Neutrophils # (Manual) 10.9 H (1.3-7.7) k/uL Lymphocytes # (1.0-4.8) k/uL Lymphocytes # (Manual) 7.5 H (1.0-4.8) k/uL PT (9.0-12.0) sec Chloride (98-107) mmol/L Carbon Dioxide (22-30) mmol/L Glucose (74-99) mg/dL POC Glucose (mg/dL) 160 H 139 H (75-99) mg/dL Total Protein (6.3-8.2) g/dL Albumin (3.5-5.0) g/dL 08/03/16 08/04/16 08/04/16 Range/Units 20:06 01:32 06:22 WBC 14.5 H (3.8-10.6) k/uL RBC 2.55 L (3.80-5.40) m/uL Hgb 7.8 L (11.4-16.0) gm/dL Hct 23.7 L (34.0-46.0) % Neutrophils # (Manual) (1.3-7.7) k/uL Lymphocytes # 6.9 H (1.0-4.8) k/uL Lymphocytes # (Manual) (1.0-4.8) k/uL PT (9.0-12.0) sec Chloride (98-107) mmol/L Carbon Dioxide (22-30) mmol/L Glucose (74-99) mg/dL POC Glucose (mg/dL) 194 H 62 L (75-99) mg/dL Total Protein (6.3-8.2) g/dL Albumin (3.5-5.0) g/dL 08/04/16 08/04/16 08/04/16 Range/Units 06:22 06:22 06:41 WBC (3.8-10.6) k/uL RBC (3.80-5.40) m/uL Hgb (11.4-16.0) gm/dL Hct (34.0-46.0) % Neutrophils # (Manual) (1.3-7.7) k/uL Lymphocytes # (1.0-4.8) k/uL Lymphocytes # (Manual) (1.0-4.8) k/uL PT 12.9 H (9.0-12.0) sec Chloride 96 L (98-107) mmol/L Carbon Dioxide 33 H (22-30) mmol/L Glucose 61 L (74-99) mg/dL POC Glucose (mg/dL) 58 L (75-99) mg/dL Total Protein 5.2 L (6.3-8.2) g/dL Albumin 2.6 L (3.5-5.0) g/dL 08/04/16 Range/Units 06:55 WBC (3.8-10.6) k/uL RBC (3.80-5.40) m/uL Hgb (11.4-16.0) gm/dL Hct (34.0-46.0) % Neutrophils # (Manual) (1.3-7.7) k/uL Lymphocytes # (1.0-4.8) k/uL Lymphocytes # (Manual) (1.0-4.8) k/uL PT (9.0-12.0) sec Chloride (98-107) mmol/L Carbon Dioxide (22-30) mmol/L Glucose (74-99) mg/dL POC Glucose (mg/dL) 61 L (75-99) mg/dL Total Protein (6.3-8.2) g/dL Albumin (3.5-5.0) g/dL Assessment and Plan (1) Intertrochanteric fracture of right hip Status: Acute (2) Anemia due to acute blood loss Status: Acute Plan: The clinical findings are discussed the patient and her daughter. She is to continue with physical therapy. We're planning discharge to inpatient rehab today if cleared medically. We will wait for medicine to address the low hemoglobin.
[2016-08-04] MEDS: glipiZIDE 5 MG TAB PO SCH (10:42)
--- NOTE | 2016-08-04 10:42 | P.DS ---
Providers Date of admission: 07/30/16 23:30 Expected date of discharge: 08/04/16 Attending physician: Erlin Conroy Consults: 07/31/16 13:41 Consult Physician Routine Consulting Provider: Kurtis Sarmiento Reason/Comments: surgical clearance. Patient has UTI and Leukocytosis Do you want consulting provider notified?: Yes Primary care physician: Marylou Gonzalez - Discharge Diagnosis(es) (1) Intertrochanteric fracture of right hip Current Visit: Yes Status: Acute (2) Anemia due to acute blood loss Current Visit: Yes Status: Acute Hospital Course: This is a 89-year-old female who is admitted to [facility] on 07/30[facility]2015 after falling and sustaining injury to her right hip. On exam and x- ray in the emergency department he is found to have an intertrochanteric fracture of the right hip. She is admitted to our service for surgical intervention and care. Patient is taken to surgery for close reduction and insertion of intertrochanteric nail of the right hip. The procedure was performed without complication or sequelae. The patient is doing fairly well postoperatively. Hemoglobin is 7.8 on postoperative day #3. Vital signs are stable on postoperative day #3. She is to remain toe-touch weightbearing to the right lower extremity with walker. Patient is discharged to inpatient rehab in good condition. Please see med rec for accurate list of discharge medications. Patient Condition at Discharge: Stable Plan - Discharge Summary New Discharge Prescriptions: HYDROcodone/APAP 5-325MG [[place] 5-325] 1 - 2 each PO Q4-6H PRN #90 tab PRN Reason: Pain Sennosides-Docusate Sodium [Senokot-S] 1 tab PO BID #60 tablet Warfarin Sodium [Coumadin] 1 mg PO DAILY #30 tablet Discharge Medication List ALPRAZolam 0.5 mg PO HS PRN 11/10/14 [History] Simvastatin [Zocor] 20 mg PO WEFR 11/10/14 [History] glipiZIDE [Glucotrol] 5 mg PO BID 11/10/14 [History] metFORMIN HCL [Metformin HCl] 850 mg PO BID 11/10/14 [History] Irbesartan [Avapro] 150 mg PO DAILY 12/27/15 [History] Levothyroxine Sodium [Synthroid] 75 mcg PO DAILY 12/27/15 [History] Indapamide [Lozol] 2.5 mg PO DAILY 07/30/16 [History] HYDROcodone/APAP 5-325MG [[place] 5-325] 1 - 2 each PO Q4-6H PRN #90 tab 08/04/16 [Rx] Sennosides-Docusate Sodium [Senokot-S] 1 tab PO BID #60 tablet 08/04/16 [Rx] Warfarin Sodium [Coumadin] 1 mg PO DAILY #30 tablet 08/04/16 [Rx] Follow up Appointment(s)/Referral(s): Marylou Gonzalez DO [Primary Care Provider] - 1-2 days Erlin Conroy MD [STAFF PHYSICIAN] - 3 Weeks (Patient may follow-up with Dr. Wes Conroy at [facility] in 2-3 weeks following discharge. ) Ambulatory/Diagnostic Orders: Walker [DME.AMB1] Location: Determined By Patient Prothrombin Time INR [LAB.AMB] Location: Determined By Patient Activity/Diet/Wound Care/Special Instructions: May shower if no drainage from incision. Toe-touch weightbearing only to the right lower extremity with walker. Discharge Disposition: TRANSFER TO SNF/ECF
[2016-08-04] MEDS ORDERED: LACTULOSE 20 GM/30 ML CUP PO ONE (10:44)
--- NOTE | 2016-08-04 11:19 | P.PN ---
Subjective Is a 89-year-old female who presented to the hospital after fracturing her right hip. She had gone to sit on her stool and missed the stool. Also was found have evidence of a UTI. Seen by Dr. Sarmiento and he has cleared her for surgery. Patient lying in bed comfortably. Pain controlled. Denies any chest pain or shortness of breath. Denies any nausea or vomiting. Denies any bowel movement changes. Denies any burning with urination. Patient was seen evaluated prior to surgery August 04 2016 Patient sitting at bedside chair. Pain is controlled. Complaining of constipation and decreased appetite. She also had hypoglycemia with a blood sugar of 61 this morning. His been about 4 days since her last bowel movement. She is passing gas no abdominal pain. She will receive lactulose. Antibiotics were discontinued by infectious disease. She denies any chest pain shortness of breath. Denies a nausea or vomiting. Denies any difficult to urinating. Objective - Vital Signs Vital signs: Vital Signs Temp 98.1 F 08/04/16 07:19 Pulse 73 08/04/16 07:19 Resp 17 08/04/16 07:19 BP 137/61 08/04/16 07:19 Pulse Ox 98 08/04/16 07:19 Intake & Output 08/03/16 08/04/16 08/04/16 18:59 06:59 18:59 Intake Total 1700 300 240 Balance 1700 300 240 Weight 54.431 kg Intake: Oral 1700 300 240 Other: Voiding Method Diaper Diaper # Voids 1 - Exam Head normocephalic Neck supple Lungs clear to auscultation bilaterally no wheezing or crackles Heart regular rate and rhythm S1-S2, no rub or gallop Abdomen is soft nontender nondistended positive bowel sounds no hepatosplenomegaly Extremities no edema Neuro alert and orientated to 3 - Labs CBC & Chem 7: 08/04/16 06:22 08/04/16 06:22 Labs: Abnormal Lab Results - Last 24 Hours (Table) 08/03/16 08/03/16 08/03/16 Range/Units 12:16 17:02 20:06 WBC 18.8 H (3.8-10.6) k/uL RBC 2.62 L (3.80-5.40) m/uL Hgb 7.9 L (11.4-16.0) gm/dL Hct 24.7 L (34.0-46.0) % Neutrophils # (Manual) 10.9 H (1.3-7.7) k/uL Lymphocytes # (1.0-4.8) k/uL Lymphocytes # (Manual) 7.5 H (1.0-4.8) k/uL PT (9.0-12.0) sec Chloride (98-107) mmol/L Carbon Dioxide (22-30) mmol/L Glucose (74-99) mg/dL POC Glucose (mg/dL) 139 H 194 H (75-99) mg/dL Total Protein (6.3-8.2) g/dL Albumin (3.5-5.0) g/dL 08/04/16 08/04/16 08/04/16 Range/Units 01:32 06:22 06:22 WBC 14.5 H (3.8-10.6) k/uL RBC 2.55 L (3.80-5.40) m/uL Hgb 7.8 L (11.4-16.0) gm/dL Hct 23.7 L (34.0-46.0) % Neutrophils # (Manual) (1.3-7.7) k/uL Lymphocytes # 6.9 H (1.0-4.8) k/uL Lymphocytes # (Manual) (1.0-4.8) k/uL PT (9.0-12.0) sec Chloride 96 L (98-107) mmol/L Carbon Dioxide 33 H (22-30) mmol/L Glucose 61 L (74-99) mg/dL POC Glucose (mg/dL) 62 L (75-99) mg/dL Total Protein 5.2 L (6.3-8.2) g/dL Albumin 2.6 L (3.5-5.0) g/dL 08/04/16 08/04/16 08/04/16 Range/Units 06:22 06:41 06:55 WBC (3.8-10.6) k/uL RBC (3.80-5.40) m/uL Hgb (11.4-16.0) gm/dL Hct (34.0-46.0) % Neutrophils # (Manual) (1.3-7.7) k/uL Lymphocytes # (1.0-4.8) k/uL Lymphocytes # (Manual) (1.0-4.8) k/uL PT 12.9 H (9.0-12.0) sec Chloride (98-107) mmol/L Carbon Dioxide (22-30) mmol/L Glucose (74-99) mg/dL POC Glucose (mg/dL) 58 L 61 L (75-99) mg/dL Total Protein (6.3-8.2) g/dL Albumin (3.5-5.0) g/dL Assessment and Plan Plan: 1. Acute intertrochanteric right femoral fracture: Patient is status post close reduction and internal nailing. Tolerated surgery well. Continue DVT prophylaxis per orthopedic protocol she's currently on Coumadin 2. UTI present on admission: Urine culture no growth. Evaluated by infectious disease. Antibiotics discontinued. 3. Acute kidney injury creatinine 1.15 on admission. Kidney functions have normalized. Lozol discontinued on admission 4. Diabetes mellitus type 2: Patient having episodes of hypoglycemia due to poor oral intake. Discontinue glipizide. 2 sliding scale coverage 5. Hypertension: Blood pressures are stable. 6. Hypothyroidism continue Synthroid 7. Hyperlipidemia continue Zocor 8. Generalized anxiety disorder continue Xanax as needed 9. Leukocytosis: White count is trending down likely related to the UTI. 10. Hypoxemia likely related to atelectasis will continue with incentive spirometer. 11. Anemia possibly acute blood loss anemia due to the fracture. Hemoglobin 7.8. Patient will receive a dose of IV iron. And start ferrous sulfate. 12. Constipation we'll give 1 dose of lactulose. Patient has been cleared by orthopedics to be discharged to [facility] for rehab further rehabilitation. Due to patient's constipation and poor oral intake. We 'll give 1 dose of lactulose. If patient has bowel movement and after she receives her IV iron she could then be discharged. Patient does not have a bowel movement. Recommending holding discharge for at least one day until patient has bowel movement. GI prophylaxis Pepcid and DVT prophylaxis subcu heparin
[2016-08-04] MEDS ORDERED: SODIUM FERRIC GLUCONAT-SUCROSE 125 MG in SODIUM CHLORIDE 0.9% 100 ML IVPB ONE (11:30)
[2016-08-04 11:52] LABS: Glucose,Whole Blood 74 mg/dL (75-99)
[2016-08-04 15:04] VITALS: RESP 16
[2016-08-04 16:59] LABS: Glucose,Whole Blood 139 mg/dL (75-99)
[2016-08-04] MEDS: HYDROcodone/APAP 5-325MG 1 EACH TAB PO PRN (17:03)
[2016-08-04] MEDS ORDERED: WARFARIN 5 MG TAB PO ONE (18:00)
[2016-08-04] MEDS: SENNOSIDES-DOCUSATE SODIUM 1 EACH TAB PO SCH (19:57)
[2016-08-04 20:01] LABS: Glucose,Whole Blood 237 mg/dL (75-99)
[2016-08-04] MEDS ORDERED: FERROUS SULFATE 325 MG TAB PO SCH (21:00)
--- NOTE | 2016-08-04 23:04 | P.PN ---
Subjective Principal diagnosis: hip fracture Very pleasant 89-year-old female was at her home. She went to work on the computer as she went to sit in the stool she lost her balance and fell to the floor. She then developed significant pain into her right hip. She Was Brought to the Emergency Center for X-Ray Reveals Evidence of the Right Intertrochanteric Hip Fracture Is Minimally Displaced. She is now planned for the open reduction internal fixation of the fracture today. Patient was noted evidence of a mild leukocytosis as well as abnormal urinalysis. Concerns for urinary tract infection. The patient has urinary incontinence and is unaware of any significant change of her urinary status. She is denying dysuria but is unaware of any change of frequency because she has significant incontinence. Does not believe she was having significant fever , chill or rigor in the home setting before she came in the hospital. Family did see her the day of the injury and did not notice any other acute new changes to the patient's status. At the moment other than some pain to the hip she has no other new acute complaints, did well with surgery. Objective - Vital Signs Vital signs: Vital Signs Temp 99.2 F 08/04/16 19:39 Pulse 97 08/04/16 19:39 Resp 16 08/04/16 20:00 BP 124/60 08/04/16 19:39 Pulse Ox 97 08/04/16 19:39 Intake & Output 08/04/16 08/04/16 08/05/16 06:59 18:59 06:59 Intake Total 300 460 Balance 300 460 Weight 54.431 kg Intake: Oral 300 460 Other: Voiding Method Diaper Diaper # Voids 1 1 # Bowel Movements 1 - Exam 89-year-old woman who seems somewhat uncomfortable. Having pain to her right hip. HEENT: Anicteric conjunctiva are pink and moist nasal mucosa grossly intact without significant lesions, there is no thrush. Oral mucosa is dry poor dentition, plates in place Neck: The neck is supple without significant lymphadenopathy or thyromegaly. There is no cervical lymphadenopathy preauricular or posterior cervical at this time. No other abnormal lymph nodes are noted. Lungs: Good bilateral air entry without significant crackles or wheezing. There is no significant bronchial sounds. There is no egophony or dullness. Heart: Irregular with a positive S4. No murmur click or rub. Abdomen: Positive bowel sounds soft and nontender without palpable masses or organomegaly. There was no guarding or rebound. She complained of mild tenderness upon suprapubic pressure. Extremities: The upper extremity show no lesions. IV site is intact. No splinter hemorrhages or lesions on the hands. Left lower extremity has no abnormalities. the right hip has evidence ofevidence of some mild tenderness to the lateral aspect of the hip. No erythema is noted, no extensive bruising is seen. No erythema to the hip areas noted. Neuro: She is awake and alert,improved but complains of some pain - Labs CBC & Chem 7: 08/04/16 06:22 08/04/16 06:22 Labs: Abnormal Lab Results - Last 24 Hours (Table) 08/04/16 08/04/16 08/04/16 Range/Units 01:32 06:22 06:22 WBC 14.5 H (3.8-10.6) k/uL RBC 2.55 L (3.80-5.40) m/uL Hgb 7.8 L (11.4-16.0) gm/dL Hct 23.7 L (34.0-46.0) % Lymphocytes # 6.9 H (1.0-4.8) k/uL PT (9.0-12.0) sec Chloride 96 L (98-107) mmol/L Carbon Dioxide 33 H (22-30) mmol/L Glucose 61 L (74-99) mg/dL POC Glucose (mg/dL) 62 L (75-99) mg/dL Total Protein 5.2 L (6.3-8.2) g/dL Albumin 2.6 L (3.5-5.0) g/dL 08/04/16 08/04/16 08/04/16 Range/Units 06:22 06:41 06:55 WBC (3.8-10.6) k/uL RBC (3.80-5.40) m/uL Hgb (11.4-16.0) gm/dL Hct (34.0-46.0) % Lymphocytes # (1.0-4.8) k/uL PT 12.9 H (9.0-12.0) sec Chloride (98-107) mmol/L Carbon Dioxide (22-30) mmol/L Glucose (74-99) mg/dL POC Glucose (mg/dL) 58 L 61 L (75-99) mg/dL Total Protein (6.3-8.2) g/dL Albumin (3.5-5.0) g/dL 08/04/16 08/04/16 08/04/16 Range/Units 11:50 16:55 19:53 WBC (3.8-10.6) k/uL RBC (3.80-5.40) m/uL Hgb (11.4-16.0) gm/dL Hct (34.0-46.0) % Lymphocytes # (1.0-4.8) k/uL PT (9.0-12.0) sec Chloride (98-107) mmol/L Carbon Dioxide (22-30) mmol/L Glucose (74-99) mg/dL POC Glucose (mg/dL) 74 L 139 H 237 H (75-99) mg/dL Total Protein (6.3-8.2) g/dL Albumin (3.5-5.0) g/dL Laboratory Results WBC 14.5 k/uL (3.8-10.6) H 08/04/16 06:22 RBC 2.55 m/uL (3.80-5.40) L 08/04/16 06:22 Hgb 7.8 gm/dL (11.4-16.0) L 08/04/16 06:22 Hct 23.7 % (34.0-46.0) L 08/04/16 06:22 MCV 92.9 fL (80.0-100.0) 08/04/16 06:22 MCH 30.6 pg (25.0-35.0) 08/04/16 06:22 MCHC 33.0 g/dL (31.0-37.0) 08/04/16 06:22 RDW 13.1 % (11.5-15.5) 08/04/16 06:22 Plt Count 224 k/uL (150-450) 08/04/16 06:22 Neutrophils % 44 % 08/04/16 06:22 Neutrophils % (Manual) 58.0 % 08/03/16 12:16 Lymphocytes % 48 % 08/04/16 06:22 Lymphocytes % (Manual) 40.0 % 08/03/16 12:16 Monocytes % 5 % 08/04/16 06:22 Monocytes % (Manual) 2.0 % 08/03/16 12:16 Eosinophils % 1 % 08/04/16 06:22 Eosinophils % (Manual) 3.0 % 07/30/16 21:03 Basophils % 1 % 08/04/16 06:22 Neutrophils # 6.4 k/uL (1.3-7.7) 08/04/16 06:22 Neutrophils # (Manual) 10.9 k/uL (1.3-7.7) H 08/03/16 12:16 Lymphocytes # 6.9 k/uL (1.0-4.8) H 08/04/16 06:22 Lymphocytes # (Manual) 7.5 k/uL (1.0-4.8) H 08/03/16 12:16 Monocytes # 0.8 k/uL (0-1.0) 08/04/16 06:22 Monocytes # (Manual) 0.4 k/uL (0-1.0) 08/03/16 12:16 Eosinophils # 0.1 k/uL (0-0.7) 08/04/16 06:22 Eosinophils # (Manual) 0.6 k/uL (0-0.7) 07/30/16 21:03 Basophils # 0.1 k/uL (0-0.2) 08/04/16 06:22 Nucleated RBCs 0 /100 WBC (0-0) 08/03/16 12:16 Manual Slide Review Performed 08/04/16 06:22 Polychromasia Present 08/03/16 12:16 Poikilocytosis (manual Present 07/31/16 09:03 PT 12.9 sec (9.0-12.0) H 08/04/16 06:22 INR 1.3 (<1.1) 08/04/16 06:22 Sodium 138 mmol/L (137-145) 08/04/16 06:22 Potassium 3.6 mmol/L (3.5-5.1) 08/04/16 06:22 Chloride 96 mmol/L (98-107) L 08/04/16 06:22 Carbon Dioxide 33 mmol/L (22-30) H 08/04/16 06:22 Anion Gap 9 mmol/L 08/04/16 06:22 BUN 17 mg/dL (7-17) 08/04/16 06:22 Creatinine 0.96 mg/dL (0.52-1.04) 08/04/16 06:22 Est GFR (MDRD) Af Amer >60 (>60 ml/min/1.73 sqM) 08/04/16 06:22 Est GFR (MDRD) Non-Af 55 (>60 ml/min/1.73 sqM) 08/04/16 06:22 Glucose 61 mg/dL (74-99) L 08/04/16 06:22 POC Glucose (mg/dL) 237 mg/dL (75-99) H 08/04/16 19:53 POC Glu Profiler Mansi Chavez 08/04/16 19:[address] Glu mg/dL 194 mg/dL 07/30/16 21:03 Hemoglobin A1c 8.4 % (4.2-6.1) H 07/30/16 21:03 Calcium 8.4 mg/dL (8.4-10.2) 08/04/16 06:22 Magnesium 1.7 mg/dL (1.6-2.3) 07/30/16 21:03 Iron 66 ug/dL (37-170) 08/01/16 06:42 TIBC 271 ug/dL (265-497) 08/01/16 06:42 % Saturation 24.4 % (20-50) 08/01/16 06:42 Ferritin 38 ng/mL (11-264) 08/01/16 06:42 Total Bilirubin 0.6 mg/dL (0.2-1.3) 08/04/16 06:22 AST 15 U/L (14-36) 08/04/16 06:22 ALT 24 U/L (9-52) 08/04/16 06:22 Alkaline Phosphatase 62 U/L (38-126) 08/04/16 06:22 Total Protein 5.2 g/dL (6.3-8.2) L 08/04/16 06:22 Albumin 2.6 g/dL (3.5-5.0) L 08/04/16 06:22 Urine Color Yellow 07/30/16 21:43 Urine Appearance Cloudy (Clear) H 07/30/16 21:43 Urine pH 6.0 (5.0-8.0) 07/30/16 21:43 Ur Specific [place] 1.013 (1.001-1.035) 07/30/16 21:43 Urine Protein Trace (Negative) H 07/30/16 21:43 Urine Glucose (UA) 4+ (Negative) H 07/30/16 21:43 Urine Ketones Negative (Negative) 07/30/16 21:43 Urine Blood Negative (Negative) 07/30/16 21:43 Urine Nitrate Negative (Negative) 07/30/16 21:43 Urine Bilirubin Negative (Negative) 07/30/16 21:43 Urine Urobilinogen <2.0 mg/dL (<2.0) 07/30/16 21:43 Ur Leukocyte Esterase Large (Negative) H 07/30/16 21:43 Urine RBC 1 /hpf (0-5) 07/30/16 21:43 Urine WBC 92 /hpf (0-5) H 07/30/16 21:43 Urine WBC Clumps Moderate /hpf (None) H 07/30/16 21:43 Ur Squamous Epith Cells <1 /hpf (0-4) 07/30/16 21:43 Urine Bacteria Rare /hpf (None) H 07/30/16 21:43 Urine Mucus Rare /hpf (None) H 07/30/16 21:43 Blood Type O Positive 08/01/16 10:05 Blood Type Recheck No 08/01/16 10:05 Antibody Screen NEGATIVE 08/01/16 10:05 Spec Expiration Date 08/04/2016 - 230408/01/16 10:05 Microbiology 07/31/16 16:50 Urine,Catheterized Urine Culture - Final Assessment and Plan (1) Intertrochanteric fracture of right hip Narrative/Plan: 89-year-old female presents to Hospital from home. She attempted to sit on the stool she uses for her computer and missed the stool. She relates that the stool is normally for her sewing machine and is kind of short and may not been the right position. She fell to the floor causing severe pain to her right hip. Now is evidence of the intratrochanteric fracture of her right hip. Going to the operating room today. The patient does have urinary incontinence and is unaware frequency but does have evidence of some mild suprapubic tenderness on the exam. There is also evidence of a markedly abnormal urinalysis and she does have some leukocytosis. Stenosis is likely multifactorial including the significant fracture as well as what appears to be urinary infection. Antibiotic therapy has been initiated with levofloxacin. This is likely an adequate choice given her lack of significant other primary in about therapy for urinary infections. She does have urine culture in process and this will further help direct antibiotic therapy. urine culture so far. She did well with surgery . the urine culture is negative antibioic therapy is discontinued. Status: Acute (2) Leukocytosis Status: Acute (3) Urinary tract infection Status: Acute
[2016-08-05 01:36] LABS: Glucose,Whole Blood 114 mg/dL (75-99)
[2016-08-05] MEDS: LEVOTHYROXINE 75 MCG TAB PO SCH (05:34)
[2016-08-05] MEDS: HYDROcodone/APAP 5-325MG 1 EACH TAB PO PRN ×2 (05:36→16:53)
[2016-08-05 06:52] LABS: Glucose,Whole Blood 116 mg/dL (75-99)
[2016-08-05 07:46] LABS: CH 30.6; CHCM 32.7; HCT 25.2 % (34.0-46.0); HDW 2.83; HGB 8.4 gm/dL (11.4-16.0); MCH 31.1 pg (25.0-35.0); MCHC 33.2 g/dL (31.0-37.0); MCV 93.9 fL (80.0-100.0); Mean Platelet Volume 7.2; RBC 2.68 m/uL (3.80-5.40); RDW 12.7 % (11.5-15.5); WBC 16.1 k/uL (3.8-10.6); WBC (Perox) 16.32
[2016-08-05 07:48] LABS: INR 2.7 (<1.1); Prothrombin Time 26.2 sec (9.0-12.0)
[2016-08-05] MEDS: INSULIN LISPRO (humaLOG) 300 UNIT/3 ML VIAL SQ SCH ×2 (07:51→13:01)
[2016-08-05] MEDS: HEPARIN SODIUM,PORCINE 5,000 UNIT/ML 1 ML VIAL SQ SCH (08:02)
[2016-08-05] MEDS: LOSARTAN 50 MG TAB PO SCH (08:02)
[2016-08-05] MEDS: FAMOTIDINE 20 MG TAB PO SCH (08:03)
[2016-08-05 08:08] LABS: ALT 24 U/L (9-52); AST 13 U/L (14-36); Alkaline Phosphatase 68 U/L (38-126); Anion Gap 9 mmol/L; Blood Urea Nitrogen 16 mg/dL (7-17); Calcium 8.4 mg/dL (8.4-10.2); Carbon Dioxide 33 mmol/L (22-30); Chloride 95 mmol/L (98-107); Glucose 110 mg/dL (74-99); Non-African American GFR(MDRD) 57 (>60 ml/min/1.73 sqM); Potassium 3.6 mmol/L (3.5-5.1); Sodium 137 mmol/L (137-145); Total Bilirubin 0.7 mg/dL (0.2-1.3); Total Protein 5.3 g/dL (6.3-8.2)
[2016-08-05] MEDS ORDERED: FERROUS SULFATE 325 MG TAB PO SCH (09:00)
[2016-08-05 09:22] LABS: Add Differential Manual Differential
[2016-08-05 09:32] LABS: Nucleated Red Blood Cells 0 /100 WBC (0-0); Polychromasia Present; Total Cells Counted 100
[2016-08-05 11:43] LABS: Glucose,Whole Blood 299 mg/dL (75-99)
[2016-08-05 12:07] LABS: Glucose,Whole Blood 283 mg/dL (75-99)
[2016-08-05] MEDS: MULTIVITAMINS, THERA 1 EACH TAB PO SCH (13:02)
[2016-08-05 15:15] VITALS: BP 134/63; PULSE 113; TEMP 99.6
--- NOTE | 2016-08-05 16:40 | P.DS ---
Providers Date of admission: 07/30/16 23:30 Expected date of discharge: 08/05/16 Attending physician: Erlin Conroy Consults: 07/31/16 13:41 Consult Physician Routine Consulting Provider: Kurtis Sarmiento Reason/Comments: surgical clearance. Patient has UTI and Leukocytosis Do you want consulting provider notified?: Yes Primary care physician: [facility] Course: Patient is an 89-year-old female who presented to [facility] after sustaining a fall and having a fracture of the right hip, she also had evidence of urinary tract infection, she was started on IV Levaquin, she was seen by Dr. Sarmiento and was cleared for surgery, she underwent surgery on her right hip which she tolerated well. Urine culture was negative and Levaquin was discontinued. Patient was started on Coumadin for DVT prophylaxis. Her INR at the time of discharge was therapeutic at 2.7 she will be maintained on Coumadin 2.5 mg daily INR will be checked at the custodial for further evaluation in 2-3 days. For pain patient was given [place] 5/ 325 one every 6 hours when necessary Patient had evidence of anemia hemoglobin at the time of discharge 8.4 she will be maintained on iron supplements Patient will be followed by Dr. Delgado at [facility] Patient Condition at Discharge: Stable Plan - Discharge Summary New Discharge Prescriptions: Sennosides-Docusate Sodium [Senokot-S] 1 tab PO BID #60 tablet Warfarin Sodium [Coumadin] 1 mg PO DAILY #30 tablet Discharge Medication List ALPRAZolam 0.5 mg PO HS PRN 11/10/14 [History] Simvastatin [Zocor] 20 mg PO WEFR 11/10/14 [History] metFORMIN HCL [Metformin HCl] 850 mg PO BID 11/10/14 [History] Irbesartan [Avapro] 150 mg PO DAILY 12/27/15 [History] Levothyroxine Sodium [Synthroid] 75 mcg PO DAILY 12/27/15 [History] Sennosides-Docusate Sodium [Senokot-S] 1 tab PO BID #60 tablet 08/04/16 [Rx] Warfarin Sodium [Coumadin] 1 mg PO DAILY #30 tablet 08/04/16 [Rx] Famotidine [Pepcid] 20 mg PO DAILY tab 08/05/16 [Rx] Ferrous Sulfate [Iron (65 MG Elemental)] 325 mg PO BID tab 08/05/16 [Rx] HYDROcodone/APAP 5-325MG [[place] 5-325] 1 each PO Q6HR PRN #0 tab 08/05/16 [Rx] Magnesium Hydroxide [Milk of Magnesia Concentrate] 2,400 mg PO DAILY PRN #0 ml 08/05/16 [Rx] Multivitamins, Thera [Multivitamin] 1 each PO DAILY@1200 tab 08/05/16 [Rx] Follow up Appointment(s)/Referral(s): Marylou Gonzalez DO [Primary Care Provider] - 1-2 days ([facility] to see at [facility]) Erlin Conroy MD [STAFF PHYSICIAN] - 08/26/16 10:15 am (Patient may follow-up with Dr. Wes Conroy at [facility] in 2-3 weeks following discharge. ) Ambulatory/Diagnostic Orders: Walker [DME.AMB1] Location: Determined By Patient Prothrombin Time INR [LAB.AMB] Location: Determined By Patient Activity/Diet/Wound Care/Special Instructions: May shower if no drainage from incision. Toe-touch weightbearing only to the right lower extremity with walker. Discharge Disposition: TRANSFER TO SNF/ECF
[2016-08-05 16:42] LABS: Glucose,Whole Blood 258 mg/dL (75-99)
--- NOTE | 2016-08-06 19:10 | P.OP ---
Date of Procedure: 08/01/16 Procedure(s) Performed: FENDER MECHANIC APPRENTICE: Khadra Ahn PA-C (Assistance with: Patient positioning, retraction , exposure, hemostasis, fixation, irrigation, closure, dressing) PREOPERATIVE DIAGNOSIS: Right hip intertrochanteric fracture. POSTOPERATIVE DIAGNOSIS: Right hip intertrochanteric fracture. OPERATION: Right hip intertrochanteric fracture closed reduction and intramedullary nailing using Synthes IT nail. ANESTHESIA: Spinal ESTIMATED BLOOD LOSS: 100 mL. COMPLICATIONS: None OPERATIVE FINDINGS: See dictation INDICATIONS: Mrs. Veliz is an 89 year old female with a history of right intertrochanteric fracture. The patient presents to the operating room today for closed reduction and intramedullary nailing. I discussed the risks of surgery in detail as being inclusive of but not limited to: Bleeding, infection , scarring, discomfort, blood vessel and/or nerve damage, need for further surgery, malunion, nonunion, gait disturbance including persistent or permanent limp, limb length inequality, arthritis, hardware failure, blood clot, pulmonary embolism, , and other risks. The consent form has been signed. PROCEDURE: After appropriate consent was obtained, the patient was taken to the operating room and placed in supine position. [Spinal] anesthetic was administered and after confirmation of adequate anesthesia, the patient was carefully placed in the supine position on the operating room table in the fracture table. The patient was placed up against a well-padded peroneal post. Care was taken to make sure about that all pressure points were adequately padded. The affected leg was placed in boot traction and the unaffected leg was placed in a well leg jolley. Using gentle longitudinal distraction as well as adduction and internal rotation , the fracture was reduced as assessed by AP and lateral C-arm imaging. Once a satisfactory reduction had been obtained, the thigh was prepped and draped in the usual aseptic fashion using ChloraPrep. Ioban drape was used for the case and the patient received intravenous antibiotics prior to incision. Timeout was called, confirming patient identity, side, procedure, and administration of antibiotics. The incision was then created with a #10 blade just proximal to the greater trochanter laterally. It was carried down through skin into the subcutaneous tissues and through fascia. Hemostasis was obtained using electrocautery. The tip of the greater trochanter was palpated and a guide pin was placed at the tip and directed into the femoral shaft as assessed with C-arm imaging. Once optimal pin position had been obtained, a 17 mm reamer was used over the guide pin to create a path for the IT nail. IT nail selected was assembled to the insertion jig on the back table and bushings were checked for accuracy. The nail was then inserted using gentle mallet taps until it was fully deployed. The amount of rotation of the implant was assessed based on the amount of anteversion of the femoral neck. This was rotated to match the patient's femoral neck anteversion and the helical blade guide was placed through the insertion jig and through an incision on the lateral side of the thigh more distal than the first. Once this guide was placed against the lateral cortex of the femur, a guide pin was drilled into the central region of the femoral head and neck as based on AP and lateral C-arm imaging. Once optimal pin position had been obtained, the guidewire was measured and appropriately sized helical blade was selected. The path for the helical blade was prepared using a tapered reamer. The helical blade was then inserted using gentle mallet taps along the guidewire until it was fully deployed. There was no displacement of the fracture during this step. The anti-rotation screw was locked down and the insertion apparatus for the helical blade was removed. The guide pin was then removed. Traction was then removed from the leg and the distal interlock was placed through the jig using standard technique. Finally, the insertion jig for the nail was removed and final C-arm images were taken and saved in both AP and lateral planes. The final x-rays showed satisfactory positioning of the implant and good reduction of the fracture. The top of the nail was plugged with a small quantity of bone wax and the incisions were then thoroughly irrigated with normal saline. Final hemostasis was obtained using electrocautery and closure of the fascia was performed using 0-Vicryl suture. 2-0 Vicryl suture was used in the subcutaneous tissues and standard skin closure was performed. Sterile dressing was then applied and the patient was carefully removed from the fracture table frame and placed onto the stretcher. The patient tolerated the procedure well. There were no complications and above noted blood loss. The patient was then subsequently transferred to recovery room in stable condition. Sponge and needle counts were correct.
== END 2016-08-05 16:57 | DRG 481 ==
LOC: EC 20:53 → 3SUR 23:30
PROVIDERS: ADMIT Orthopaedic Surgery; ATTEND Orthopaedic Surgery
PROC: 0QS636Z Reposition Right Upper Femur with Intramedullary Internal Fixation Device, Percutaneous Approach (ICD-10-PCS; principal; 2016-08-01 09:45)
DX: S72.141A Displaced intertrochanteric fracture of right femur, initial encounter for closed fracture (principal); N17.9 Acute kidney failure, unspecified; E11.649 Type 2 diabetes mellitus with hypoglycemia without coma; E44.1 Mild protein-calorie malnutrition; N39.0 Urinary tract infection, site not specified; D62 Acute posthemorrhagic anemia; J98.11 Atelectasis; E78.5 Hyperlipidemia, unspecified; E03.9 Hypothyroidism, unspecified; I10 Essential (primary) hypertension; E73.9 Lactose intolerance, unspecified; F41.1 Generalized anxiety disorder; R32 Unspecified urinary incontinence; K59.00 Constipation, unspecified; Z79.84 Long term (current) use of oral hypoglycemic drugs; Z90.710 Acquired absence of both cervix and uterus; Z87.891 Personal history of nicotine dependence; Z98.42 Cataract extraction status, left eye; Z98.41 Cataract extraction status, right eye; Z79.899 Other long term (current) drug therapy; W18.30XA Fall on same level, unspecified, initial encounter; Y92.009 Unspecified place in unspecified non-institutional (private) residence as the place of occurrence of the external cause
CPT/HCPCS: 36415; 71010; 73502; 80053; 81001; 82728; 83036; 83540; 83550; 83735; 84132; 85025; 85610; 86850; 86900; 86901; 87086; 93005; 96374; 96376; 99285